=== PATIENT | female | born 1935 | race Caucasian/White ===

== ENCOUNTER → 2016-05-10 | Outpatient (CLI) | payer OTHER ==
[~2016-05-10] MED LIST: BUDE160A3 INH; LANTANOPROST OP; LEVO25TA6 PO; OMEP20TA44 PO; Premarin VG; ProAir HFA INH; SIMV-8 PO
[2016-05-10 10:27] LABS: Basophils # (auto) 0 uL; Basophils % (auto) 0.5 % (0.0-2.0); Eosinophils # (auto) 0.1 uL; Eosinophils % (auto) 2.4 % (0.0-7.0); Hematocrit 43.9 % (36.0-46.0); Hemoglobin 14.5 g/dL (12.2-16.2); Lymphocytes # (auto) 1.5 uL; Lymphocytes % (auto) 23.5 % (10.0-50.0); Mean Corpuscular Volume 96.9 fL (80.0-100.0); Mean Platelet Volume 10.4 fL (7.4-10.4); Monocytes # (auto) 0.3 uL; Monocytes % (auto) 5.5 % (0.0-12.0); Neutrophils # (auto) 4.2 uL; Neutrophils % (auto) 68.1 % (37.0-80.0); Platelet Count (auto) 236 10^3/uL (140-450); Red Cell Distribution Width 13.6 % (11.6-16.0); White Blood Cell 6.2 10^3/uL (4.4-10.8)
[2016-05-10 10:43] LABS: Albumin 3.7 g/dL (3.4-5.0); BUN/Creatinine Ratio 25.9; Bilirubin, Total 0.5 mg/dL (0.2-1.0); Calcium 8.9 mg/dL (8.5-10.1); Potassium 3.7 mmol/L (3.5-5.1); Total Protein 6.9 g/dL (6.4-8.2)
[2016-05-10 10:52] LABS: Urine Bilirubin Negative (Negative); Urine Blood Negative /uL (Negative); Urine Color Yellow (Yellow); Urine Glucose Normal (Normal); Urine Ketone Negative (Negative); Urine Nitrite Negative (Negative); Urine RBC 2 /hpf (0 - 4); Urine Squamous Epithelial Cell FEW /hpf (<5); Urine Urobilinogen Normal (Negative); Urine pH 6.5 (5.0-8.0)
== END | disposition home or self-care (01) ==
LOC: LAB 09:26
PROVIDERS: ATTEND Internal Medicine
DX: E10.9 Type 1 diabetes mellitus without complications (principal)
CPT/HCPCS: 36415; 80053; 80061; 81001; 82043; 82607; 83036; 84439; 84443; 85025; 85652

== ENCOUNTER → 2016-08-28 | Outpatient (CLI) | payer OTHER | END | disposition home or self-care (01) | LOC: LAB 11:00 | PROVIDERS: ATTEND Physician Assistant | DX: L82.1 Other seborrheic keratosis (principal) ==

== ENCOUNTER → 2016-09-11 | Outpatient (CLI) | payer OTHER | END | disposition home or self-care (01) | LOC: LAB 10:00 | PROVIDERS: ATTEND Physician Assistant | DX: C44.329 Squamous cell carcinoma of skin of other parts of face (principal) ==

== ENCOUNTER → 2016-11-20 | Outpatient (CLI) | payer OTHER ==
[2016-11-20 14:14] LABS: Basophils # (auto) 0 uL; Basophils % (auto) 0.4 % (0.0-2.0); CONDITION Y; Eosinophils # (auto) 0.2 uL; Eosinophils % (auto) 3.2 % (0.0-7.0); Hematocrit 42.9 % (36.0-46.0); Hemoglobin 14.4 g/dL (12.2-16.2); Lymphocytes # (auto) 1.7 uL; Lymphocytes % (auto) 25.7 % (10.0-50.0); Mean Corpuscular Hemoglobin 32.4 pg (28.0-32.0); Mean Corpuscular Hgb Conc. 33.5 g/dL (32.0-36.0); Mean Corpuscular Volume 96.6 fL (80.0-100.0); Mean Platelet Volume 10.3 fL (7.4-10.4); Monocytes # (auto) 0.4 uL; Monocytes % (auto) 6.6 % (0.0-12.0); Neutrophils # (auto) 4.3 uL; Neutrophils % (auto) 64.1 % (37.0-80.0); Platelet Count (auto) 283 10^3/uL (140-450); Red Cell Distribution Width 13.4 % (11.6-16.0); SUSPECT SEE PRINTOUT; White Blood Cell 6.7 10^3/uL (4.4-10.8)
[2016-11-20 14:55] LABS: Albumin 3.8 g/dL (3.4-5.0); BUN/Creatinine Ratio 32.1; Bilirubin, Total 0.4 mg/dL (0.2-1.0); Calcium 9.2 mg/dL (8.5-10.1); Potassium 3.8 mmol/L (3.5-5.1); Total Protein 7.4 g/dL (6.4-8.2)
== END | disposition home or self-care (01) ==
LOC: LAB 13:53
PROVIDERS: ATTEND Internal Medicine
DX: E10.39 Type 1 diabetes mellitus with other diabetic ophthalmic complication (principal); E03.9 Hypothyroidism, unspecified
CPT/HCPCS: 36415; 80053; 83036; 84439; 84443; 85025

== ENCOUNTER 2016-12-14 11:55 | Emergency (ER) | payer OTHER ==
[~2016-12-14] VITALS: Ht 162.6 cm; Wt 48.1 kg
[2016-12-14 13:27] LABS: Basophils # (auto) 0 uL; Basophils % (auto) 0.3 % (0.0-2.0); CONDITION Y; Eosinophils # (auto) 0.1 uL; Eosinophils % (auto) 0.9 % (0.0-7.0); Hematocrit 43.9 % (36.0-46.0); Hemoglobin 14.7 g/dL (12.2-16.2); Lymphocytes # (auto) 1.2 uL; Lymphocytes % (auto) 16.4 % (10.0-50.0); Mean Corpuscular Hemoglobin 32.5 pg (28.0-32.0); Mean Corpuscular Hgb Conc. 33.5 g/dL (32.0-36.0); Mean Corpuscular Volume 97.1 fL (80.0-100.0); Mean Platelet Volume 10.5 fL (7.4-10.4); Monocytes # (auto) 0.5 uL; Monocytes % (auto) 6.5 % (0.0-12.0); Neutrophils # (auto) 5.4 uL; Neutrophils % (auto) 75.9 % (37.0-80.0); Platelet Count (auto) 269 10^3/uL (140-450); Red Cell Distribution Width 13.5 % (11.6-16.0); SUSPECT SEE PRINTOUT; White Blood Cell 7.1 10^3/uL (4.4-10.8)
[2016-12-14 13:51] LABS: Albumin 3.7 g/dL (3.4-5.0); Alkaline Phosphatase 68 U/L (45-117); Amylase 48 U/L (25-115); Anion Gap 6 (5-15); Aspartate Aminotransferase 19 U/L (15-37); Bilirubin, Total 0.4 mg/dL (0.2-1.0); Blood Urea Nitrogen 12 mg/dL (7-18); Calcium 9.1 mg/dL (8.5-10.1); Carbon Dioxide 30 mmol/L (21-32); Chloride 104 mmol/L (98-107); GFR African American 123 mL/min; GFR Non-African American 102 mL/min; Glucose 95 mg/dL (74-106); Sodium 140 mmol/L (136-145); Total Protein 7.5 g/dL (6.4-8.2)
[2016-12-14] MEDS ORDERED: IOHEXOL 300 MG/ML 100ML BOTTLE IJ ONE (15:26)
[2016-12-14 15:53] LABS: Urine Bilirubin Negative (Negative); Urine Blood Negative /uL (Negative); Urine Color Yellow (Yellow); Urine Glucose Normal (Normal); Urine Mucus FEW (None Seen); Urine Nitrite Negative (Negative); Urine RBC 1 /hpf (0 - 4); Urine Squamous Epithelial Cell FEW /hpf (<5); Urine Urobilinogen Normal (Negative); Urine pH 5.5 (5.0-8.0)
[2016-12-14 15:59] LABS: Urine Ketone 1+ (Negative)
[2016-12-14 16:15] VITALS: BP 127/86
== END 2016-12-14 17:49 | disposition home or self-care (01) ==
LOC: ER 11:55
DX: K29.70 Gastritis, unspecified, without bleeding (principal); J44.9 Chronic obstructive pulmonary disease, unspecified; J45.909 Unspecified asthma, uncomplicated; E78.5 Hyperlipidemia, unspecified; E07.9 Disorder of thyroid, unspecified; Z90.710 Acquired absence of both cervix and uterus; Z88.1 Allergy status to other antibiotic agents; Z79.899 Other long term (current) drug therapy
CPT/HCPCS: 36415; 74177; 80053; 81001; 82150; 83690; 84484; 85025; 93005; 99285; Q9967

== ENCOUNTER → 2017-01-22 | Day surgery (SDC) | payer OTHER ==
[2017-01-18 10:42] LABS: Basophils # (auto) 0 uL; Basophils % (auto) 0.4 % (0.0-2.0); Eosinophils # (auto) 0.4 uL; Eosinophils % (auto) 5.5 % (0.0-7.0); Hematocrit 42.4 % (36.0-46.0); Hemoglobin 14.3 g/dL (12.2-16.2); Lymphocytes # (auto) 1.4 uL; Lymphocytes % (auto) 22.4 % (10.0-50.0); Mean Corpuscular Hemoglobin 32.8 pg (28.0-32.0); Mean Corpuscular Hgb Conc. 33.7 g/dL (32.0-36.0); Mean Corpuscular Volume 97.4 fL (80.0-100.0); Mean Platelet Volume 10.1 fL (6.9-10.8); Monocytes # (auto) 0.4 uL; Monocytes % (auto) 6.5 % (0.0-12.0); Neutrophils # (auto) 4.2 uL; Neutrophils % (auto) 65.2 % (37.0-80.0); Nucleated Red Blood Cells % 0.1 %; Platelet Count (auto) 216 10^3/uL (140-450); Red Cell Distribution Width 13.3 % (11.8-14.3); White Blood Cell 6.4 10^3/uL (4.4-10.8)
[2017-01-18 11:08] LABS: INR 0.98 (0.9-1.15); Partial Thromboplastin Time 28.5 sec (22.64-33.71); Prothrombin Time 10.7 sec (9.37-12.3)
[~2017-01-22] VITALS: Ht 162.6 cm; Wt 47.2 kg
[~2017-01-22] MED LIST changes: -BUDE160A3 INH; +FLUT110A INH; +LIDOCAINE VISCOUS 2% 15ML UD ONE; -OMEP20TA44 PO; +PANT40TA2 PO; +SODIUM CHLORIDE LOCK 10 ML ONE; +diphenhdrAMINE HCL 50 MG/1 ML VL ONE
[2017-01-22] MEDS: fentaNYL CITRATE 100 MCG/2 ML VL ONE ×2 (11:12→11:15)
[2017-01-22] MEDS: MIDAZOLAM HCL 5 MG/ML-1ML VIAL ONE ×2 (11:12→11:15)
[2017-01-22 13:35] VITALS: BP 113/62
== END | disposition home or self-care (01) ==
LOC: GI 09:11
PROVIDERS: ATTEND Internal Medicine Gastroenterology
DX: K29.50 Unspecified chronic gastritis without bleeding (principal); J45.998 Other asthma; Z90.710 Acquired absence of both cervix and uterus; E11.9 Type 2 diabetes mellitus without complications; F41.0 Panic disorder [episodic paroxysmal anxiety]; F41.9 Anxiety disorder, unspecified; K75.9 Inflammatory liver disease, unspecified
CPT/HCPCS: 36415; 43239; 82962; 85025; 85610; 85730; J1200; J2250; J3010

== ENCOUNTER → 2017-07-12 | Outpatient (CLI) | payer OTHER ==
[~2017-07-12] MED LIST changes: -LIDOCAINE VISCOUS 2% 15ML UD ONE; -SODIUM CHLORIDE LOCK 10 ML ONE; -diphenhdrAMINE HCL 50 MG/1 ML VL ONE
[2017-07-12 12:15] LABS: Basophils # (auto) 0.1 uL; Basophils % (auto) 1.4 % (0.0-2.0); Eosinophils # (auto) 0.1 uL; Eosinophils % (auto) 2.5 % (0.0-7.0); Hematocrit 44.5 % (36.0-46.0); Hemoglobin 14.8 g/dL (12.2-16.2); Lymphocytes # (auto) 1.5 uL; Lymphocytes % (auto) 28.5 % (10.0-50.0); Mean Corpuscular Hemoglobin 32.2 pg (28.0-32.0); Mean Corpuscular Hgb Conc. 33.3 g/dL (32.0-36.0); Mean Corpuscular Volume 96.7 fL (80.0-100.0); Monocytes # (auto) 0.4 uL; Monocytes % (auto) 7.1 % (0.0-12.0); Neutrophils # (auto) 3.2 uL; Neutrophils % (auto) 60.5 % (37.0-80.0); Nucleated Red Blood Cells % 0.3 %; Platelet Count (auto) 231 10^3/uL (140-450); Red Cell Distribution Width 13.6 % (11.8-14.3); White Blood Cell 5.3 10^3/uL (4.4-10.8)
[2017-07-12 12:19] LABS: Urine Bacteria NONE SEEN /hpf (None Seen); Urine Blood Negative /uL (Negative); Urine Mucus FEW (None Seen); Urine Specific Gravity 1.018 (1.001-1.035); Urine WBC 1 /hpf (0 - 5)
[2017-07-12 13:15] LABS: Free T4 (Free Thyroxine) 1.32 ng/dL (0.89-1.76)
[2017-07-12 13:57] LABS: Albumin 3.7 g/dL (3.4-5.0); BUN/Creatinine Ratio 25.8; Bilirubin, Total 0.6 mg/dL (0.2-1.0); Calcium 9.3 mg/dL (8.5-10.1); Potassium 3.9 mmol/L (3.5-5.1); Total Protein 7.3 g/dL (6.4-8.2)
== END | disposition home or self-care (01) ==
LOC: LAB 11:18
PROVIDERS: ATTEND Internal Medicine
DX: E11.9 Type 2 diabetes mellitus without complications (principal); K21.9 Gastro-esophageal reflux disease without esophagitis; J45.909 Unspecified asthma, uncomplicated
CPT/HCPCS: 36415; 80053; 80061; 81001; 82043; 82607; 83036; 84439; 84443; 85025

== ENCOUNTER → 2018-01-01 | Outpatient (CLI) | payer OTHER ==
[2018-01-01 14:01] LABS: Basophils # (auto) 0 uL; Basophils % (auto) 0.4 % (0.0-2.0); Eosinophils # (auto) 0.2 uL; Eosinophils % (auto) 2.9 % (0.0-7.0); Hematocrit 42.5 % (36.0-46.0); Hemoglobin 14.3 g/dL (12.2-16.2); Lymphocytes # (auto) 1.6 uL; Mean Corpuscular Hgb Conc. 33.6 g/dL (32.0-36.0); Mean Corpuscular Volume 98.2 fL (80.0-100.0); Monocytes # (auto) 0.4 uL; Monocytes % (auto) 6.5 % (0.0-12.0); Neutrophils # (auto) 4.1 uL; Neutrophils % (auto) 65.2 % (37.0-80.0); Nucleated Red Blood Cells % 0.1 %; Platelet Count (auto) 249 10^3/uL (140-450); Red Blood Cells 4.33 10^6/uL (4.0-5.20); Red Cell Distribution Width 13.5 % (11.8-14.3); White Blood Cell 6.4 10^3/uL (4.4-10.8)
[2018-01-01 14:16] LABS: Albumin 3.7 g/dL (3.4-5.0); BUN/Creatinine Ratio 28.4; Bilirubin, Total 0.5 mg/dL (0.2-1.0); Potassium 3.9 mmol/L (3.5-5.1); Total Protein 7.4 g/dL (6.4-8.2)
== END | disposition home or self-care (01) ==
LOC: LAB 13:33
PROVIDERS: ATTEND Internal Medicine
DX: E11.9 Type 2 diabetes mellitus without complications (principal); K57.90 Diverticulosis of intestine, part unspecified, without perforation or abscess without bleeding; J44.9 Chronic obstructive pulmonary disease, unspecified; Z90.49 Acquired absence of other specified parts of digestive tract
CPT/HCPCS: 36415; 80053; 83036; 85025

== ENCOUNTER 2018-01-26 08:45 | Emergency (ER) | payer OTHER ==
[~2018-01-26] VITALS: Ht 162.6 cm; Wt 68.0 kg
[2018-01-26 09:14] VITALS: BP 155/83
== END 2018-01-26 10:07 | disposition home or self-care (01) ==
LOC: ER 08:45
DX: L02.214 Cutaneous abscess of groin (principal); L73.9 Follicular disorder, unspecified; J44.9 Chronic obstructive pulmonary disease, unspecified; E07.89 Other specified disorders of thyroid; E78.5 Hyperlipidemia, unspecified; Z88.1 Allergy status to other antibiotic agents; Z90.710 Acquired absence of both cervix and uterus
CPT/HCPCS: 10060

== ENCOUNTER → 2018-06-11 | Outpatient (CLI) | payer OTHER, MEDICARE ==
[2018-06-11 15:19] LABS: Alanine Aminotransferase 25 U/L (13-56); Aspartate Aminotransferase 23 U/L (15-37)
== END | disposition home or self-care (01) ==
LOC: LAB 14:49
PROVIDERS: ATTEND Internal Medicine
DX: E03.9 Hypothyroidism, unspecified (principal); E78.5 Hyperlipidemia, unspecified
CPT/HCPCS: 36415; 84439; 84443; 84450; 84460

== ENCOUNTER → 2018-09-26 | Outpatient (CLI) | payer OTHER, MEDICARE ==
[2018-09-26 12:41] LABS: Basophils # (auto) 0 uL; Basophils % (auto) 0.3 % (0.0-2.0); Eosinophils # (auto) 0.2 uL; Eosinophils % (auto) 2.9 % (0.0-7.0); Hematocrit 43.1 % (36.0-46.0); Hemoglobin 14.5 g/dL (12.2-16.2); Lymphocytes # (auto) 1.7 uL; Mean Corpuscular Hemoglobin 32.7 pg (28.0-32.0); Mean Corpuscular Hgb Conc. 33.7 g/dL (32.0-36.0); Monocytes # (auto) 0.4 uL; Monocytes % (auto) 6.7 % (0.0-12.0); Neutrophils # (auto) 4.1 uL; Neutrophils % (auto) 64.1 % (37.0-80.0); Nucleated Red Blood Cells % 0.1 %; Platelet Count (auto) 256 10^3/uL (140-450); Red Blood Cells 4.45 10^6/uL (4.0-5.20); Red Cell Distribution Width 13.7 % (11.8-14.3); White Blood Cell 6.4 10^3/uL (4.4-10.8)
[2018-09-26 13:08] LABS: Albumin 3.6 g/dL (3.4-5.0); BUN/Creatinine Ratio 23.5; Potassium 3.8 mmol/L (3.5-5.1)
[2018-09-26 13:12] LABS: Bilirubin, Total 0.6 mg/dL (0.2-1.0)
[2018-09-27 12:06] LABS: Urine Bacteria NONE SEEN /hpf (None Seen); Urine Blood Negative /uL (Negative); Urine Specific Gravity 1.008 (1.001-1.035); Urine WBC 3 /hpf (0 - 5)
== END | disposition home or self-care (01) ==
LOC: LAB 12:02
PROVIDERS: ATTEND Internal Medicine
DX: E03.9 Hypothyroidism, unspecified (principal); K21.9 Gastro-esophageal reflux disease without esophagitis
CPT/HCPCS: 36415; 80053; 80061; 81001; 82043; 84439; 84443; 85025; 85652

== ENCOUNTER 2018-11-29 14:27 | Emergency (ER) | payer MEDICARE, OTHER ==
[~2018-11-29] VITALS: Ht 162.6 cm; Wt 54.4 kg
[2018-11-29 14:45] VITALS: BP 154/93
== END 2018-11-29 15:28 | disposition home or self-care (01) ==
LOC: ER 14:27
DX: H11.32 Conjunctival hemorrhage, left eye (principal); J44.9 Chronic obstructive pulmonary disease, unspecified; E78.5 Hyperlipidemia, unspecified; Z90.710 Acquired absence of both cervix and uterus; Z88.1 Allergy status to other antibiotic agents

== ENCOUNTER → 2019-04-07 | Outpatient (CLI) | payer OTHER ==
[2019-04-07 11:54] LABS: Potassium 3.6 mmol/L (3.5-5.1)
[2019-04-07 12:02] LABS: Albumin 3.7 g/dL (3.4-5.0); BUN/Creatinine Ratio 20.9; Bilirubin, Total 0.6 mg/dL (0.2-1.0); Calcium 8.5 mg/dL (8.5-10.1); Total Protein 7.2 g/dL (6.4-8.2)
== END | disposition home or self-care (01) ==
LOC: LAB 10:55
PROVIDERS: ATTEND Internal Medicine
DX: E11.9 Type 2 diabetes mellitus without complications (principal); E03.9 Hypothyroidism, unspecified
CPT/HCPCS: 36415; 80053; 83036; 84439; 84443

== ENCOUNTER 2019-05-08 23:01 | Emergency (ER) | payer OTHER ==
[~2019-05-08] VITALS: Ht 162.6 cm; Wt 46.7 kg
[2019-05-09 01:15] LABS: Urine Bacteria FEW /hpf (None Seen); Urine Blood Negative /uL (Negative); Urine Hyaline Cast FEW /lpf (0 - 2); Urine Mucus FEW (None Seen); Urine Specific Gravity 1.008 (1.001-1.035); Urine WBC 14 /hpf (0 - 5)
[2019-05-09] MEDS ORDERED: LIDOCAINE 1% HCL (LOCAL ANESTH.) INJ 20ML MDV IJ ONE (01:30)
[2019-05-09] MEDS ORDERED: cefTRIAXone SOD 1,000 MG VL IM ONE (01:30)
[2019-05-09] MEDS ORDERED: TETANUS-DIPTH-ACEL PERTUSSIS 0.5ML SYRG IM ONE (01:30)
[2019-05-09 03:35] VITALS: BP 120/60
== END 2019-05-09 02:37 | disposition home or self-care (01) ==
LOC: EDBD 23:01 → ER 23:07
DX: S01.01XA Laceration without foreign body of scalp, initial encounter (principal); J44.9 Chronic obstructive pulmonary disease, unspecified; E78.5 Hyperlipidemia, unspecified; Z90.710 Acquired absence of both cervix and uterus; Z88.1 Allergy status to other antibiotic agents; W19.XXXA Unspecified fall, initial encounter; Y93.89 Activity, other specified; Y99.8 Other external cause status; Y92.89 Other specified places as the place of occurrence of the external cause
CPT/HCPCS: 12002; 70450; 81001; 90471; 90715; 96372; 99284; J0696; J2001

== ENCOUNTER 2019-07-14 04:08 | Inpatient (IN) | payer OTHER ==
[~2019-07-14] VITALS: Ht 160 cm; Wt 119.0 kg
[2019-07-14 05:18] LABS: Urine Bacteria FEW /hpf (None Seen); Urine Blood Negative /uL (Negative); Urine Specific Gravity 1.006 (1.001-1.035); Urine WBC 5 /hpf (0 - 5)
[2019-07-14 06:28] LABS: Basophils # (auto) 0 10 ^3/uL (0-0.2); Basophils % (auto) 0.2 % (0.0-2.0); Eosinophils # (auto) 0.1 10 ^3/uL (0-0.8); Eosinophils % (auto) 0.9 % (0.0-7.0); Hematocrit 43.7 % (36.0-46.0); Hemoglobin 14.7 g/dL (12.2-16.2); Lymphocytes # (auto) 0.9 10 ^3/uL (0.4-5.4); Lymphocytes % (auto) 11.3 % (10.0-50.0); Mean Corpuscular Hemoglobin 32.4 pg (28.0-32.0); Mean Corpuscular Hgb Conc. 33.7 g/dL (32.0-36.0); Mean Corpuscular Volume 96.4 fL (80.0-100.0); Monocytes # (auto) 0.5 10 ^3/uL (0-1.3); Monocytes % (auto) 5.9 % (0.0-12.0); Neutrophils # (auto) 6.6 10 ^3/uL (1.6-8.6); Neutrophils % (auto) 81.7 % (37.0-80.0); Nucleated Red Blood Cells % 0.1 %; Platelet Count (auto) 254 10^3/uL (140-450); Red Blood Cells 4.53 10^6/uL (4.0-5.20); Red Cell Distribution Width 13.8 % (11.8-14.3); White Blood Cell 8.1 10^3/uL (4.4-10.8)
[2019-07-14 06:41] LABS: Albumin 3.6 g/dL (3.4-5.0); Anion Gap 4 (5-15); BUN/Creatinine Ratio 20.3; Blood Urea Nitrogen 15 mg/dL (7-18); Calcium 8.7 mg/dL (8.5-10.1); Carbon Dioxide 28 mmol/L (21-32); Chloride 111 mmol/L (98-107); GFR African American 96 mL/min; GFR Non-African American 79 mL/min; Glucose 147 mg/dL (74-106); Magnesium 2.2 mg/dL (1.6-2.6); Potassium 3.3 mmol/L (3.5-5.1); Sodium 143 mmol/L (136-145)
[2019-07-14 06:57] LABS: Alanine Aminotransferase 23 U/L (13-56); Alkaline Phosphatase 73 U/L (45-117); Aspartate Aminotransferase 14 U/L (15-37); Bilirubin, Total 0.3 mg/dL (0.2-1.0); Total Protein 7.1 g/dL (6.4-8.2)
[2019-07-14] MEDS ORDERED: IPRATROPIUM BROM 0.5 MG/2.5ML INH SOL NEB PRN (07:00)
[2019-07-14] MEDS ORDERED: ALBUTEROL SULF 2.5 MG/0.5ML(0.5%) NEB SOLN NEB PRN (07:00)
[2019-07-14] MEDS ORDERED: MORPHINE SULFATE 4 MG/ML SYR/VIAL IV PRN (07:00)
[2019-07-14] MEDS ORDERED: ONDANSETRON HCL 4 MG/2 ML VIAL IV PRN (07:00)
[2019-07-14] MEDS ORDERED: ACETAMINOPHEN 325 MG TAB PO PRN (07:00)
[2019-07-14] MEDS ORDERED: HYDROcodone-ACET 5/325MG TAB PO PRN (07:00)
[2019-07-14] MEDS ORDERED: DOCUSATE SOD 100 MG CAP PO PRN (07:00)
--- NOTE | 2019-07-14 07:00 | NUR ---
Respiratory note: ASSESSED PT FOR PRN BREATHING TX. PT IS AWAKE AND ALERT, NO S/S OF RESPIRATORY DISTRESS. PT IS CURRENTLY ON 2 L NASAL CANNULA. PT IS AWARE TO HAVE RT PAGED IF BREATHING TX IS NEEDED.
[2019-07-14] MEDS ORDERED: POTASSIUM CHL 20 Meq TABLET PO ONE (07:15)
[2019-07-14 07:19] LABS: INR 1.04 (0.9-1.15); Partial Thromboplastin Time 28.7 sec (23.64-32.05)
[2019-07-14] MEDS: SODIUM CHLORIDE 0.9% 1,000 ML IV SCH (07:34)
[2019-07-14] MEDS: LEVOTHYROXINE SODIUM 50 MCG TAB PO SCH (07:37)
[2019-07-14] MEDS: levoFLOXacin 500MG 100 ML IV SCH (07:37)
--- NOTE | 2019-07-14 11:07 | NUR ---
Telemetry admit from ER RAMY RODRIGUEZ admitted to Telemetry unit after SBAR received. Patient oriented to JAKE FUCHS, PARVIN primary RN, unit, room 221 B, and unit policies regarding patient care and visiting hours. Patient now on continuous telemetry monitoring, tele box # [id number]. Patient placed on bedside oxygen, weighed by bedscale and encouraged to call if they need something. All questions and concerns addressed, patient verbalized understanding.
[2019-07-14 11:45] VITALS: BP 153/76
[2019-07-14] MEDS: ATORVASTATIN 20 MG TAB PO SCH (12:31)
[2019-07-14] MEDS: PANTOPRAZOLE 40 MG TAB PO SCH ×2 (12:31→22:46)
[2019-07-14] MEDS ORDERED: METOPROLOL TARTRATE 1MG/1ML-5ML VIAL IV ONE (14:30)
[2019-07-14] MEDS ORDERED: CIPR-173 PO (15:06)
[2019-07-14 15:29] VITALS: BP 153/76
[2019-07-14 17:00] VITALS: BP 118/61
--- NOTE | 2019-07-14 19:25 | NUR ---
OPENING SHIFT NOTE Assumed care of patient who is A&O x3. Disoriented to place, but easily reoriented. Currently on 4L via Oxymizer. No s/s of distress and patient denies SOB or pain at this time. PIV in left upper arm is intact and patent. Flushed with 10ML NS. Patient is ambulatory with the use of a walker; walker is present at bedside. POC discussed with patient and patients son who is at the bedside. Patient is sitting on the side of bed, with feet on the floor. Call light within reach and patient instructed to call for assistance to get back into bed when ready. Patient verbalized understanding. Will continue to monitor for changes PRN. Addendum: 07/14/19 at 2043 by HUNTER SANCHEZ RN RN charted under wrong patient profile
--- NOTE | 2019-07-14 19:40 | NUR ---
OPENING SHIFT NOTE Assumed care of patient who is A&O x4. Currently on RA with no s/s of SOB or distress. Denies pain or heart palpitations. Patient currently has no IV access. States that she became tangled in the tubing, and IV became dislodged. IV is at the bedside and catheter is fully intact. No bleeding noted at previous insertion site. Patient is ambulatory without the use of assistive devices. POC discussed and patient verbalizes understanding. Bed is in low locked position with side rails up x2. Call light is within reach and patient encouraged to call for assistance when needed. Patient verbalizes understanding. Will continue to monitor for changes PRN.
--- NOTE | 2019-07-14 19:45 | NUR ---
Urine sample for culture sent to lab via [facility] system.
[2019-07-14 20:00] VITALS: BP 121/83
--- NOTE | 2019-07-14 20:00 | NUR ---
IV insertion IV access obtained, via clean sterile technique by inserting 22 gauge catheter at right forearm after 1 attempt. IV secured properly. No trauma to site. Patient tolerated well. note: IVF continued as ordered.
--- NOTE | 2019-07-14 21:00 | NUR ---
Respiratory note: PT ASSESSED FOR PRN MED NEB TX.. HR 89, RR 18, SPO2 97% ON 2L NC. NO SIGNS OF ANY RESPIRATORY DISTRESS NOTED. ADVISED PT TO CALL IF TX IS NEEDED. RT NAME AND PAGER NUMBER WRITTEN ON PT'S BOARD.
[2019-07-14] MEDS: METOPROLOL TARTRATE 25 MG TAB PO SCH (22:46)
[2019-07-14 23:36] VITALS: BP 121/83
--- NOTE | 2019-07-15 04:30 | NUR ---
Patient provided sanitary napkins per requests due to stress incontinence. Patient escorted into restroom with standby assist. Tolerated well.
[2019-07-15 05:52] VITALS: BP 120/71
[2019-07-15] MEDS: LEVOTHYROXINE SODIUM 50 MCG TAB PO SCH (06:42)
[2019-07-15 06:57] LABS: BUN/Creatinine Ratio 29.7; Calcium 8.7 mg/dL (8.5-10.1); Potassium 3.6 mmol/L (3.5-5.1)
--- NOTE | 2019-07-15 07:30 | NUR ---
Opening Shift Note Assumed care of patient, awake and alert, sitting up in bed. No S/S of distress/SOB, no pain noted or reported. Updated on POC and instructed to call for assistance as needed, patient verbalized understanding. Bed locked in lowest position, side rails up x2, call light within reach. Will continue to monitor for changes Q1hr and PRN.
[2019-07-15] MEDS: SODIUM CHLORIDE 0.9% 1,000 ML IV SCH (08:16)
[2019-07-15 08:20] VITALS: BP 121/83
[2019-07-15 09:00] VITALS: BP 124/72
[2019-07-15] MEDS: ATORVASTATIN 20 MG TAB PO SCH (10:34)
[2019-07-15] MEDS: levoFLOXacin 500MG 100 ML IV SCH ×2 (10:34→10:50)
[2019-07-15] MEDS: PANTOPRAZOLE 40 MG TAB PO SCH (10:35)
[2019-07-15] MEDS: METOPROLOL TARTRATE 25 MG TAB PO SCH (10:35)
--- NOTE | 2019-07-15 11:03 | NUR ---
Respiratory note: PT ASSESSED FOR PRN MED NEB TX, NO TX DESIRED NOR INDICATED AT THIS TIME. PT IS AWAKE/ALERT SITTING IN BED WITH NO0 NOTED DISTRESS. PT DENIES ANY SOB OR DIFF BREATHING. SPO2 95% ON RA HR 53 RR 14 BREATH SOUNDS ARE CLEAR. PT AND RN AWARE TO HAVE RT PAGED IF NEEDED.
[2019-07-15 13:37] VITALS: BP 113/74
[2019-07-15] MEDS ORDERED: MET25T PO (14:06)
[2019-07-15 16:26] VITALS: BP 115/70
[2019-07-15 16:51] VITALS: BP 115/70
--- NOTE | 2019-07-15 18:30 | NUR ---
Discharge home Discharge instructions given as ordered. Encourage to follow up with PMD as instructed. All questions and concerns addressed. Patient verbalized understanding. Medication reconciliation form completed and copy given to patient. IV removed with catheter intact, pressure dressing applied. Telemetry unit returned to ICU. Patient taken to vehicle via wheelchair with all personal belongings, accompanied by staff and family member. No distress noted at time of departure.
== END 2019-07-15 18:30 | disposition home or self-care (01) | DRG 315 ==
LOC: EDBD 04:08 → ER 04:08 → TELE 04:09 → TELE-CENTR 11:29
PROVIDERS: ADMIT Hospitalist; ATTEND Internal Medicine Nephrology
DX: R00.8 Other abnormalities of heart beat (principal); N39.0 Urinary tract infection, site not specified; J44.9 Chronic obstructive pulmonary disease, unspecified; J45.909 Unspecified asthma, uncomplicated; R00.2 Palpitations; K21.9 Gastro-esophageal reflux disease without esophagitis; F41.9 Anxiety disorder, unspecified; E87.6 Hypokalemia; E78.5 Hyperlipidemia, unspecified; E03.9 Hypothyroidism, unspecified; R73.9 Hyperglycemia, unspecified; I10 Essential (primary) hypertension; Z88.1 Allergy status to other antibiotic agents; Z79.899 Other long term (current) drug therapy; Z90.710 Acquired absence of both cervix and uterus; Z80.9 Family history of malignant neoplasm, unspecified; Z82.5 Family history of asthma and other chronic lower respiratory diseases
CPT/HCPCS: 36415; 36600; 71045; 80048; 80053; 81001; 82805; 83036; 83735; 83880; 84443; 84484; 85025; 85610; 85730; 87040; 87086; 93005; 93306; 96361; 96374; G0378; J1956

== ENCOUNTER 2019-10-11 19:07 | Inpatient (IN) | payer OTHER ==
[~2019-10-11] VITALS: Ht 162.6 cm; Wt 47.1 kg
[~2019-10-11 19:07] MED LIST changes: +MET25T PO; -Premarin VG; -ProAir HFA INH
[2019-10-11 19:43] LABS: Basophils # (auto) 0.1 10 ^3/uL (0-0.2); Basophils % (auto) 0.9 % (0.0-2.0); Eosinophils # (auto) 0.1 10 ^3/uL (0-0.8); Eosinophils % (auto) 1.7 % (0.0-7.0); Hematocrit 41.5 % (36.0-46.0); Hemoglobin 13.9 g/dL (12.2-16.2); Lymphocytes # (auto) 1.1 10 ^3/uL (0.4-5.4); Mean Corpuscular Hemoglobin 32.3 pg (28.0-32.0); Mean Corpuscular Hgb Conc. 33.6 g/dL (32.0-36.0); Mean Corpuscular Volume 96.4 fL (80.0-100.0); Monocytes # (auto) 0.4 10 ^3/uL (0-1.3); Monocytes % (auto) 5.9 % (0.0-12.0); Neutrophils # (auto) 5.3 10 ^3/uL (1.6-8.6); Neutrophils % (auto) 75.5 % (37.0-80.0); Nucleated Red Blood Cells % 0.1 %; Platelet Count (auto) 278 10^3/uL (140-450); White Blood Cell 7.1 10^3/uL (4.4-10.8)
[2019-10-11 20:03] LABS: Alanine Aminotransferase 30 U/L (13-56); Albumin 3.6 g/dL (3.4-5.0); Anion Gap 7 (5-15); Aspartate Aminotransferase 22 U/L (15-37); BUN/Creatinine Ratio 24.2; Blood Urea Nitrogen 15 mg/dL (7-18); Calcium 8.4 mg/dL (8.5-10.1); Carbon Dioxide 27 mmol/L (21-32); Chloride 107 mmol/L (98-107); GFR African American 118 mL/min; GFR Non-African American 97 mL/min; Glucose 95 mg/dL (74-106); Potassium 3.6 mmol/L (3.5-5.1); Sodium 141 mmol/L (136-145)
[2019-10-11 20:08] LABS: Alkaline Phosphatase 75 U/L (45-117); Bilirubin, Total 0.5 mg/dL (0.2-1.0); Total Protein 7.2 g/dL (6.4-8.2)
[2019-10-11] MEDS ORDERED: SODIUM CHLORIDE 0.9% 1,000 ML IVB ONE (20:24)
[2019-10-11] MEDS ORDERED: ASPirin 81 mg TAB PO ONE (20:30)
[2019-10-11 20:53] LABS: INR 1.03 (0.9-1.15); Partial Thromboplastin Time 29.1 sec (23.64-32.05)
[2019-10-11] MEDS ORDERED: IOHEXOL 350 MG/ML 100ML IJ ONE (22:11)
[2019-10-11] MEDS ORDERED: CLOPIDOGREL BISULFATE 75 MG TAB PO ONE (23:15)
[2019-10-12] MEDS ORDERED: MORPHINE SULF INJ 2 MG/ML SYRINGE 1ML IV PRN (03:00)
[2019-10-12] MEDS ORDERED: DOCUSATE SOD 100 MG CAP PO PRN (03:00)
[2019-10-12] MEDS ORDERED: ACETAMINOPHEN 325 MG TAB PO PRN (03:00)
[2019-10-12] MEDS ORDERED: HYDROcodone-ACET 5/325MG TAB PO PRN (03:00)
[2019-10-12] MEDS ORDERED: ONDANSETRON HCL 4 MG/2 ML VIAL IV PRN (03:00)
[2019-10-12 06:28] LABS: Basophils # (auto) 0 10 ^3/uL (0-0.2); Basophils % (auto) 0.5 % (0.0-2.0); Eosinophils # (auto) 0.2 10 ^3/uL (0-0.8); Eosinophils % (auto) 3.7 % (0.0-7.0); Hematocrit 40.6 % (36.0-46.0); Hemoglobin 13.6 g/dL (12.2-16.2); Lymphocytes # (auto) 1.4 10 ^3/uL (0.4-5.4); Lymphocytes % (auto) 22.3 % (10.0-50.0); Mean Corpuscular Hemoglobin 32.4 pg (28.0-32.0); Mean Corpuscular Hgb Conc. 33.5 g/dL (32.0-36.0); Mean Corpuscular Volume 96.6 fL (80.0-100.0); Monocytes # (auto) 0.5 10 ^3/uL (0-1.3); Monocytes % (auto) 7.5 % (0.0-12.0); Neutrophils # (auto) 4.1 10 ^3/uL (1.6-8.6); Platelet Count (auto) 267 10^3/uL (140-450); Red Blood Cells 4.21 10^6/uL (4.0-5.20); White Blood Cell 6.1 10^3/uL (4.4-10.8)
[2019-10-12 06:47] LABS: Calcium 8.3 mg/dL (8.5-10.1); Potassium 3.3 mmol/L (3.5-5.1)
[2019-10-12 06:52] LABS: BUN/Creatinine Ratio 16.4
[2019-10-12] MEDS: LEVOTHYROXINE SODIUM 25 MCG TAB PO SCH (07:40)
[2019-10-12] MEDS ORDERED: PANT40T PO (07:45)
[2019-10-12] MEDS ORDERED: LATA0.0019 EACHEYE (07:45)
[2019-10-12] MEDS ORDERED: METO25TA93 PO (07:45)
[2019-10-12] MEDS: PANTOPRAZOLE 40 MG TAB PO SCH ×2 (09:50→22:23)
[2019-10-12] MEDS: METOPROLOL TARTRATE 25 MG TAB PO SCH ×2 (09:51→22:23)
[2019-10-12 15:00] VITALS: BP 134/80
[2019-10-12 16:59] VITALS: BP 145/77
[2019-10-12 22:00] VITALS: BP 153/90
[2019-10-12] MEDS ORDERED: ATORVASTATIN 20 MG TAB PO SCH (22:00)
[2019-10-12] MEDS ORDERED: LATANOPROST 0.005 % OPTH(EYE) SOL 2.5ML EACHEYE SCH (22:00)
[2019-10-13 05:55] VITALS: BP 152/99
[2019-10-13] MEDS: LEVOTHYROXINE SODIUM 25 MCG TAB PO SCH (05:59)
[2019-10-13 09:00] VITALS: BP 126/77
[2019-10-13] MEDS ORDERED: POTASSIUM CHL 20 Meq TABLET PO ONE (10:15)
[2019-10-13] MEDS: PANTOPRAZOLE 40 MG TAB PO SCH (10:21)
[2019-10-13] MEDS: METOPROLOL TARTRATE 25 MG TAB PO SCH (10:22)
[2019-10-13 13:00] VITALS: BP 136/80
[2019-10-13 16:12] VITALS: BP 136/80
== END 2019-10-13 16:30 | disposition home or self-care (01) | DRG 309 ==
LOC: ER 19:07 → EDBD 19:07 → TELE 19:08 → TELE-CENTR 10-12 14:43
PROVIDERS: ADMIT Hospitalist; ATTEND Family Medicine
DX: R00.2 Palpitations (principal); Z68.1 Body mass index [BMI] 19.9 or less, adult; E03.9 Hypothyroidism, unspecified; E87.6 Hypokalemia; E78.5 Hyperlipidemia, unspecified; E78.00 Pure hypercholesterolemia, unspecified; I11.0 Hypertensive heart disease with heart failure; J44.9 Chronic obstructive pulmonary disease, unspecified; R63.6 Underweight; Z82.5 Family history of asthma and other chronic lower respiratory diseases; Z90.710 Acquired absence of both cervix and uterus; Z88.8 Allergy status to other drugs, medicaments and biological substances
CPT/HCPCS: 36415; 71045; 71275; 80048; 80053; 80061; 83735; 83880; 84443; 84484; 85025; 85379; 85610; 85730; 93005; G0378

== ENCOUNTER → 2019-11-19 | Outpatient (CLI) | payer OTHER ==
[~2019-11-19] MED LIST changes: -LANTANOPROST OP; +LATA0.0019 EACHEYE; -MET25T PO; +METO25TA93 PO; +PANT40T PO; -PANT40TA2 PO
[2019-11-19 15:38] LABS: Magnesium 2.6 mg/dL (1.6-2.6); Potassium 5.2 mmol/L (3.5-5.1)
== END | disposition home or self-care (01) ==
LOC: LAB 14:49
PROVIDERS: ATTEND Internal Medicine
DX: E87.6 Hypokalemia (principal)
CPT/HCPCS: 36415; 83735; 84132

== ENCOUNTER → 2019-12-01 | Outpatient (CLI) | payer OTHER | END | disposition home or self-care (01) | LOC: LAB 15:13 | PROVIDERS: ATTEND Internal Medicine | DX: E87.6 Hypokalemia (principal); E11.9 Type 2 diabetes mellitus without complications | CPT/HCPCS: 36415; 83036; 84132 ==

== ENCOUNTER → 2020-07-13 | Outpatient (CLI) | payer OTHER ==
[~2020-07-13] MED LIST changes: +APIX2.5T PO; +CHOL1TAB22 PO; +FLU220IH INH; +LATA0.0020 EACHEYE; +LEVO50TA7 PO; +METO25TA5 PO; +MULT-1058 PO; +PROB1CHW2 PO
[2020-07-13 16:06] LABS: Albumin 3.5 g/dL (3.4-5.0); Calcium 8.9 mg/dL (8.5-10.1); Potassium 4.1 mmol/L (3.5-5.1)
[2020-07-13 16:09] LABS: BUN/Creatinine Ratio 29.7; Bilirubin, Total 0.4 mg/dL (0.2-1.0); Total Protein 7.4 g/dL (6.4-8.2)
[2020-07-13 16:10] LABS: Basophils # (auto) 0 10 ^3/uL (0-0.2); Basophils % (auto) 0.3 % (0.0-2.0); Eosinophils # (auto) 0.2 10 ^3/uL (0-0.8); Eosinophils % (auto) 3.2 % (0.0-7.0); Hematocrit 39.9 % (36.0-46.0); Hemoglobin 13.4 g/dL (12.2-16.2); Lymphocytes # (auto) 1.5 10 ^3/uL (0.4-5.4); Lymphocytes % (auto) 20.4 % (10.0-50.0); Mean Corpuscular Hemoglobin 31.8 pg (28.0-32.0); Mean Corpuscular Hgb Conc. 33.6 g/dL (32.0-36.0); Mean Corpuscular Volume 94.7 fL (80.0-100.0); Monocytes # (auto) 0.5 10 ^3/uL (0-1.3); Neutrophils # (auto) 5.2 10 ^3/uL (1.6-8.6); Neutrophils % (auto) 69.1 % (37.0-80.0); Nucleated Red Blood Cells % 0.1 %; Platelet Count (auto) 289 10^3/uL (140-450); Red Blood Cells 4.21 10^6/uL (4.0-5.20); Red Cell Distribution Width 13.8 % (11.8-14.3); White Blood Cell 7.5 10^3/uL (4.4-10.8)
== END | disposition home or self-care (01) ==
LOC: LAB 14:58
PROVIDERS: ATTEND Internal Medicine
DX: E11.9 Type 2 diabetes mellitus without complications (principal); E03.9 Hypothyroidism, unspecified
CPT/HCPCS: 36415; 80053; 83036; 84443; 84550; 85025; 85652

== ENCOUNTER → 2020-09-29 | Outpatient (CLI) | payer OTHER ==
[2020-09-29 15:41] LABS: Basophils # (auto) 0 10 ^3/uL (0-0.2); Basophils % (auto) 0.4 % (0.0-2.0); Eosinophils # (auto) 0.8 10 ^3/uL (0-0.8); Eosinophils % (auto) 9.2 % (0.0-7.0); Hematocrit 40.1 % (36.0-46.0); Hemoglobin 13.8 g/dL (12.2-16.2); Lymphocytes # (auto) 1.4 10 ^3/uL (0.4-5.4); Lymphocytes % (auto) 15.4 % (10.0-50.0); Mean Corpuscular Hemoglobin 32.8 pg (28.0-32.0); Mean Corpuscular Hgb Conc. 34.4 g/dL (32.0-36.0); Mean Corpuscular Volume 95.3 fL (80.0-100.0); Monocytes # (auto) 0.7 10 ^3/uL (0-1.3); Monocytes % (auto) 7.8 % (0.0-12.0); Neutrophils % (auto) 67.2 % (37.0-80.0); Platelet Count (auto) 267 10^3/uL (140-450); Red Cell Distribution Width 14.1 % (11.8-14.3); White Blood Cell 8.9 10^3/uL (4.4-10.8)
[2020-09-29 16:42] LABS: Albumin 3.3 g/dL (3.4-5.0); Calcium 8.6 mg/dL (8.5-10.1); Potassium 3.8 mmol/L (3.5-5.1)
[2020-09-29 16:46] LABS: Bilirubin, Total 0.6 mg/dL (0.2-1.0)
== END | disposition home or self-care (01) ==
LOC: LAB 15:27
PROVIDERS: ATTEND Internal Medicine
DX: J20.9 Acute bronchitis, unspecified (principal)
CPT/HCPCS: 36415; 80053; 84439; 84443; 85025

== ENCOUNTER → 2020-12-14 | Outpatient (CLI) | payer OTHER | END | disposition home or self-care (01) | LOC: LAB 14:43 | PROVIDERS: ATTEND Internal Medicine | DX: R93.89 Abnormal findings on diagnostic imaging of other specified body structures (principal) | CPT/HCPCS: 36415; 82565; 84520 ==

== ENCOUNTER → 2021-02-18 | Outpatient (CLI) | payer OTHER | END | disposition home or self-care (01) | LOC: LAB 14:07 | PROVIDERS: ATTEND Nurse Practitioner Family | DX: Z20.822 Contact with and (suspected) exposure to COVID-19 (principal) | CPT/HCPCS: C9803; U0003 ==

== ENCOUNTER → 2021-08-03 | Outpatient (CLI) | payer OTHER ==
[2021-08-03 13:53] LABS: Basophils # (auto) 0.1 10 ^3/uL (0-0.2); Basophils % (auto) 0.8 % (0.0-2.0); Eosinophils # (auto) 0.3 10 ^3/uL (0-0.8); Hematocrit 39.3 % (36.0-46.0); Hemoglobin 13.2 g/dL (12.2-16.2); Lymphocytes # (auto) 1.4 10 ^3/uL (0.4-5.4); Mean Corpuscular Hgb Conc. 33.5 g/dL (32.0-36.0); Mean Corpuscular Volume 95.5 fL (80.0-100.0); Monocytes # (auto) 0.4 10 ^3/uL (0-1.3); Monocytes % (auto) 5.3 % (0.0-12.0); Neutrophils # (auto) 4.6 10 ^3/uL (1.6-8.6); Neutrophils % (auto) 68.9 % (37.0-80.0); Nucleated Red Blood Cells % 0.1 %; Red Blood Cells 4.11 10^6/uL (4.0-5.20); White Blood Cell 6.7 10^3/uL (4.4-10.8)
[2021-08-03 14:03] LABS: Urine Bacteria NONE SEEN /hpf (None Seen); Urine Blood Negative /uL (Negative); Urine Mucus FEW (None Seen); Urine Specific Gravity 1.011 (1.001-1.035); Urine WBC <1 /hpf (0 - 5)
[2021-08-03 14:38] LABS: Albumin 3.3 g/dL (3.4-5.0); Calcium 8.7 mg/dL (8.5-10.1); Potassium 3.8 mmol/L (3.5-5.1)
[2021-08-03 14:43] LABS: Bilirubin, Total 0.5 mg/dL (0.2-1.0); Total Protein 6.8 g/dL (6.4-8.2)
[2021-08-03 14:48] LABS: Free T4 (Free Thyroxine) 1.07 ng/dL (0.89-1.76)
[2021-08-03 15:23] LABS: BUN/Creatinine Ratio 18.3
== END | disposition home or self-care (01) ==
LOC: LAB 13:20
PROVIDERS: ATTEND Internal Medicine
DX: E11.40 Type 2 diabetes mellitus with diabetic neuropathy, unspecified (principal); J45.909 Unspecified asthma, uncomplicated
CPT/HCPCS: 36415; 80053; 80061; 81001; 82043; 82607; 83036; 84439; 84443; 85025; 85652

== ENCOUNTER → 2021-11-01 | Outpatient (CLI) | payer OTHER ==
[2021-11-01 13:58] LABS: Basophils # (auto) 0 10 ^3/uL (0-0.2); Basophils % (auto) 0.3 % (0.0-2.0); Eosinophils # (auto) 0 10 ^3/uL (0-0.8); Eosinophils % (auto) 0.1 % (0.0-7.0); Hematocrit 41.4 % (36.0-46.0); Hemoglobin 13.5 g/dL (12.2-16.2); Lymphocytes # (auto) 1.1 10 ^3/uL (0.4-5.4); Lymphocytes % (auto) 7.6 % (10.0-50.0); Mean Corpuscular Hemoglobin 31.2 pg (28.0-32.0); Mean Corpuscular Hgb Conc. 32.6 g/dL (32.0-36.0); Mean Corpuscular Volume 95.7 fL (80.0-100.0); Monocytes # (auto) 1.2 10 ^3/uL (0-1.3); Monocytes % (auto) 7.9 % (0.0-12.0); Neutrophils # (auto) 12.2 10 ^3/uL (1.6-8.6); Neutrophils % (auto) 84.1 % (37.0-80.0); Red Blood Cells 4.33 10^6/uL (4.0-5.20); Red Cell Distribution Width 14.1 % (11.8-14.3); White Blood Cell 14.6 10^3/uL (4.4-10.8)
[2021-11-01 14:28] LABS: Albumin 3.2 g/dL (3.4-5.0); BUN/Creatinine Ratio 15.7; Calcium 8.8 mg/dL (8.5-10.1); Potassium 4.2 mmol/L (3.5-5.1)
[2021-11-01 14:32] LABS: Bilirubin, Total 1.1 mg/dL (0.2-1.0)
== END | disposition home or self-care (01) ==
LOC: LAB 13:05
PROVIDERS: ATTEND Internal Medicine
DX: J40 Bronchitis, not specified as acute or chronic (principal)
CPT/HCPCS: 36415; 80053; 83036; 85025; 87070; 87205

== ENCOUNTER → 2022-06-08 | Outpatient (CLI) | payer OTHER ==
[2022-06-08 12:26] LABS: Basophils # (auto) 0 10 ^3/uL (0-0.2); Basophils % (auto) 0.6 % (0.0-2.0); Eosinophils # (auto) 0.5 10 ^3/uL (0-0.8); Eosinophils % (auto) 6.2 % (0.0-7.0); Hematocrit 42.6 % (36.0-46.0); Lymphocytes # (auto) 1.3 10 ^3/uL (0.4-5.4); Lymphocytes % (auto) 16.9 % (10.0-50.0); Mean Corpuscular Volume 97.1 fL (80.0-100.0); Monocytes # (auto) 0.5 10 ^3/uL (0-1.3); Monocytes % (auto) 6.4 % (0.0-12.0); Neutrophils # (auto) 5.3 10 ^3/uL (1.6-8.6); Neutrophils % (auto) 69.9 % (37.0-80.0); Red Blood Cells 4.39 10^6/uL (4.0-5.20); Red Cell Distribution Width 14.1 % (11.8-14.3); White Blood Cell 7.6 10^3/uL (4.4-10.8)
[2022-06-08 13:25] LABS: Potassium 3.8 mmol/L (3.5-5.1)
[2022-06-08 13:32] LABS: Albumin 3.6 g/dL (3.4-5.0); BUN/Creatinine Ratio 27.8; Bilirubin, Total 0.6 mg/dL (0.2-1.0); Calcium 8.6 mg/dL (8.5-10.1); Total Protein 6.8 g/dL (6.4-8.2)
== END | disposition home or self-care (01) ==
LOC: LAB 12:09
PROVIDERS: ATTEND Internal Medicine
DX: I10 Essential (primary) hypertension (principal); E11.9 Type 2 diabetes mellitus without complications
CPT/HCPCS: 36415; 80053; 83036; 84439; 84443; 85025

== ENCOUNTER 2022-06-21 11:09 | Emergency (ER) | payer OTHER ==
[~2022-06-21] VITALS: Ht 162.6 cm; Wt 46.9 kg
[2022-06-21 13:13] VITALS: BP 155/74
[2022-06-21] MEDS ORDERED: CEPH-510 PO (13:56)
== END 2022-06-21 14:13 | disposition home or self-care (01) ==
LOC: ER 11:09
DX: S01.532A Puncture wound without foreign body of oral cavity, initial encounter (principal); F41.9 Anxiety disorder, unspecified; E78.5 Hyperlipidemia, unspecified; I10 Essential (primary) hypertension; Z79.899 Other long term (current) drug therapy; Z90.710 Acquired absence of both cervix and uterus; X58.XXXA Exposure to other specified factors, initial encounter; Y93.89 Activity, other specified; Y92.89 Other specified places as the place of occurrence of the external cause; Y99.8 Other external cause status

== ENCOUNTER → 2023-03-20 | Outpatient (CLI) | payer OTHER ==
[~2023-03-20] MED LIST changes: +CEPH-510 PO; -LATA0.0019 EACHEYE; +LATA0.008 EACHEYE; -SIMV-8 PO; +SIMV20TA20 PO
[2023-03-20 12:21] LABS: Basophils # (auto) 0 10 ^3/uL (0-0.2); Basophils % (auto) 0.3 % (0.0-2.0); Eosinophils # (auto) 0.4 10 ^3/uL (0-0.8); Eosinophils % (auto) 5.1 % (0.0-7.0); Hematocrit 40.5 % (36.0-46.0); Hemoglobin 13.6 g/dL (12.2-16.2); Lymphocytes # (auto) 1.2 10 ^3/uL (0.4-5.4); Lymphocytes % (auto) 16.2 % (10.0-50.0); Mean Corpuscular Hemoglobin 32.7 pg (28.0-32.0); Mean Corpuscular Hgb Conc. 33.5 g/dL (32.0-36.0); Mean Corpuscular Volume 97.5 fL (80.0-100.0); Monocytes # (auto) 0.5 10 ^3/uL (0-1.3); Monocytes % (auto) 6.5 % (0.0-12.0); Neutrophils # (auto) 5.3 10 ^3/uL (1.6-8.6); Neutrophils % (auto) 71.9 % (37.0-80.0); Red Blood Cells 4.16 10^6/uL (4.0-5.20); Red Cell Distribution Width 13.8 % (11.8-14.3); White Blood Cell 7.4 10^3/uL (4.4-10.8)
[2023-03-20 12:46] LABS: Alanine Aminotransferase 23 U/L (7-40); Albumin 4.2 g/dL (3.2-4.8); Alkaline Phosphatase 67 U/L (46-116); Anion Gap 3 (5-15); Aspartate Aminotransferase 30 U/L (13-40); BUN/Creatinine Ratio 23.2 (10.0-20.0); Bilirubin, Total 0.5 mg/dL (0.2-1.0); Blood Urea Nitrogen 19 mg/dL (9-23); Calcium 9.3 mg/dL (8.7-10.4); Carbon Dioxide 31 mmol/L (20-30); Chloride 108 mmol/L (98-107); Magnesium 2.3 mg/dL (1.6-2.6); Potassium 3.8 mmol/L (3.5-5.1); Sodium 142 mmol/L (136-145); Total Protein 6.8 g/dL (5.7-8.2)
[2023-03-20 12:49] LABS: Glucose 74 mg/dL (74-106)
== END | disposition home or self-care (01) ==
LOC: LAB 11:39
PROVIDERS: ATTEND Internal Medicine
DX: I10 Essential (primary) hypertension (principal); E11.9 Type 2 diabetes mellitus without complications
CPT/HCPCS: 36415; 80053; 83036; 83735; 85025

== ENCOUNTER → 2023-04-02 | Outpatient (CLI) | payer OTHER | END | disposition home or self-care (01) | LOC: XYW 10:18 | PROVIDERS: ATTEND Internal Medicine | DX: I08.0 Rheumatic disorders of both mitral and aortic valves (principal); I49.3 Ventricular premature depolarization | CPT/HCPCS: 93306 ==

== ENCOUNTER → 2023-11-23 | Outpatient (CLI) | payer OTHER ==
[2023-11-23 13:03] LABS: Urine Bacteria None Seen /hpf (None Seen)
[2023-11-23 13:14] LABS: Basophils # (auto) 0 10 ^3/uL (0-0.2); Basophils % (auto) 0.4 % (0.0-2.0); Eosinophils # (auto) 0.2 10 ^3/uL (0-0.8); Eosinophils % (auto) 2.8 % (0.0-7.0); Hematocrit 40.8 % (36.0-46.0); Hemoglobin 13.7 g/dL (12.2-16.2); Lymphocytes # (auto) 1.3 10 ^3/uL (0.4-5.4); Lymphocytes % (auto) 22.4 % (10.0-50.0); Mean Corpuscular Hemoglobin 32.6 pg (28.0-32.0); Mean Corpuscular Hgb Conc. 33.5 g/dL (32.0-36.0); Mean Corpuscular Volume 97.3 fL (80.0-100.0); Monocytes # (auto) 0.4 10 ^3/uL (0-1.3); Monocytes % (auto) 6.4 % (0.0-12.0); Red Blood Cells 4.19 10^6/uL (4.0-5.20); Red Cell Distribution Width 14.2 % (11.8-14.3); White Blood Cell 5.9 10^3/uL (4.4-10.8)
[2023-11-23 13:56] LABS: Urine Blood Negative /uL (Negative); Urine Clarity Clear (Clear); Urine Color Yellow (Yellow); Urine Hyaline Cast FEW /lpf (0 - 2); Urine Mucus FEW (None Seen); Urine Protein, UAD TRACE (Negative); Urine Specific Gravity 1.024 (1.001-1.035); Urine Urobilinogen Normal (Negative); Urine WBC 2 /hpf (0 - 5); Urine pH 5.5 (5.0-9.0)
[2023-11-23 14:08] LABS: Alanine Aminotransferase 19 U/L (7-40); Albumin 4.3 g/dL (3.2-4.8); Alkaline Phosphatase 74 U/L (46-116); Anion Gap 5 (5-15); Aspartate Aminotransferase 23 U/L (13-40); BUN/Creatinine Ratio 22.5 (10.0-20.0); Blood Urea Nitrogen 20 mg/dL (9-23); Calcium 9.5 mg/dL (8.7-10.4); Carbon Dioxide 31 mmol/L (20-30); Chloride 107 mmol/L (98-107); Glucose 91 mg/dL (74-106); LDL Cholesterol 43 mg/dL (< 100); Potassium 4.3 mmol/L (3.5-5.1); Sodium 143 mmol/L (136-145); Triglycerides 47 mg/dL (< 150)
[2023-11-23 14:09] LABS: Bilirubin, Total 0.7 mg/dL (0.2-1.0); Cholesterol 118 mg/dL (< 200); HDL Cholesterol 63 mg/dL (40-59); Total Protein 6.6 g/dL (5.7-8.2)
[2023-11-23 14:16] LABS: Erythrocyte Sedimentation Rate 12 mm/hr (0-20)
== END | disposition home or self-care (01) ==
LOC: LAB 12:50
PROVIDERS: ATTEND Internal Medicine
DX: I10 Essential (primary) hypertension (principal); E11.9 Type 2 diabetes mellitus without complications
CPT/HCPCS: 36415; 80053; 80061; 81001; 82043; 83036; 84439; 84443; 85025; 85652

== ENCOUNTER 2023-12-07 11:57 | Emergency (ER) | payer OTHER ==
[~2023-12-07] VITALS: Ht 149.9 cm; Wt 43.4 kg
[2023-12-07 12:52] VITALS: BP 158/94; PULSE 85; RESP 18; O2SAT 95
[2023-12-07] MEDS ORDERED: CEPH500C PO (13:00)
[2023-12-07] MEDS ORDERED: ACET-1080 PO (13:00)
[2023-12-07 13:07] VITALS: TEMP 99
[2023-12-07] MEDS: ACETAMINOPHEN 325 MG TAB PO ONE (13:07)
[2023-12-07] MEDS: cefTRIAXone SOD 1,000 MG VL IM ONE (13:07)
== END 2023-12-07 13:30 | disposition home or self-care (01) ==
LOC: ER 12:00
DX: K04.7 Periapical abscess without sinus (principal); F41.9 Anxiety disorder, unspecified; E78.5 Hyperlipidemia, unspecified; I10 Essential (primary) hypertension; E03.9 Hypothyroidism, unspecified; Z90.710 Acquired absence of both cervix and uterus; Z88.1 Allergy status to other antibiotic agents; Z79.899 Other long term (current) drug therapy
CPT/HCPCS: 96372; 99283; J0696

== ENCOUNTER 2024-02-04 13:10 | Emergency (ER) | payer OTHER ==
[~2024-02-04] VITALS: Ht 162.6 cm; Wt 45.8 kg
[~2024-02-04 13:10] MED LIST changes: +ACET-1080 PO; +CEPH500C PO
[2024-02-04] MEDS ORDERED: CLIN1CAP70 PO (15:58)
[2024-02-04 16:51] VITALS: BP 145/92; PULSE 100; RESP 18; TEMP 97.6; O2SAT 95
== END 2024-02-04 16:51 | disposition home or self-care (01) ==
LOC: ER 13:10
DX: K02.9 Dental caries, unspecified (principal); K04.7 Periapical abscess without sinus; I10 Essential (primary) hypertension; E78.5 Hyperlipidemia, unspecified; F41.9 Anxiety disorder, unspecified; Z79.899 Other long term (current) drug therapy; Z90.710 Acquired absence of both cervix and uterus; Z98.890 Other specified postprocedural states; Z88.1 Allergy status to other antibiotic agents

== ENCOUNTER 2024-02-17 12:47 | Emergency (ER) | payer OTHER ==
[~2024-02-17] VITALS: Ht 162.6 cm; Wt 42.9 kg
[~2024-02-17 12:47] MED LIST changes: +CLIN1CAP70 PO
[2024-02-17] MEDS ORDERED: DOXY-286 PO (14:23)
[2024-02-17 14:39] VITALS: BP 133/95; PULSE 93; RESP 16; TEMP 98.7; O2SAT 96
== END 2024-02-17 14:44 | disposition home or self-care (01) ==
LOC: ER 12:47
DX: K04.7 Periapical abscess without sinus (principal); E78.5 Hyperlipidemia, unspecified; I10 Essential (primary) hypertension; E03.9 Hypothyroidism, unspecified; Z88.1 Allergy status to other antibiotic agents; Z88.8 Allergy status to other drugs, medicaments and biological substances; Z79.899 Other long term (current) drug therapy; Z90.710 Acquired absence of both cervix and uterus

== ENCOUNTER 2024-03-07 10:14 | Emergency (ER) | payer OTHER ==
[~2024-03-07] VITALS: Ht 162.6 cm; Wt 41.2 kg
[~2024-03-07 10:14] MED LIST changes: +DOXY-286 PO
[2024-03-07 11:26] VITALS: TEMP 98.2
[2024-03-07] MEDS ORDERED: LEVO500T91 PO (11:45)
[2024-03-07] MEDS ORDERED: BENZ200C64 PO (11:45)
[2024-03-07 11:50] VITALS: BP 134/47; PULSE 69; RESP 16; O2SAT 97
== END 2024-03-07 11:53 | disposition home or self-care (01) ==
LOC: ER 10:14
DX: J20.9 Acute bronchitis, unspecified (principal); K04.7 Periapical abscess without sinus; I10 Essential (primary) hypertension; E78.5 Hyperlipidemia, unspecified; F41.9 Anxiety disorder, unspecified; Z90.710 Acquired absence of both cervix and uterus
CPT/HCPCS: 71046

== ENCOUNTER 2024-06-29 10:42 | Inpatient (IN) | payer OTHER ==
[~2024-06-29] VITALS: Ht 162.6 cm; Wt 61.7 kg
[~2024-06-29 10:42] MED LIST changes: +BENZ200C64 PO; +LEVO500T91 PO
[2024-06-29 14:18] LABS: Basophils # (auto) 0 10 ^3/uL (0-0.2); Basophils % (auto) 0.3 % (0.0-2.0); Eosinophils # (auto) 0.1 10 ^3/uL (0-0.8); Eosinophils % (auto) 1.4 % (0.0-7.0); Hematocrit 40.6 % (36.0-46.0); Hemoglobin 13.7 g/dL (12.2-16.2); Lymphocytes # (auto) 1.1 10 ^3/uL (0.4-5.4); Lymphocytes % (auto) 12.3 % (10.0-50.0); Mean Corpuscular Hemoglobin 32.8 pg (28.0-32.0); Mean Corpuscular Hgb Conc. 33.8 g/dL (32.0-36.0); Mean Corpuscular Volume 97.1 fL (80.0-100.0); Monocytes # (auto) 0.6 10 ^3/uL (0-1.3); Monocytes % (auto) 6.9 % (0.0-12.0); Neutrophils # (auto) 6.9 10 ^3/uL (1.6-8.6); Neutrophils % (auto) 79.1 % (37.0-80.0); Nucleated Red Blood Cells % 0.1 %; Platelet Count (auto) 285 10^3/uL (140-450); Red Blood Cells 4.19 10^6/uL (4.0-5.20); Red Cell Distribution Width 14.1 % (11.8-14.3); White Blood Cell 8.7 10^3/uL (4.4-10.8)
[2024-06-29 14:24] LABS: Chloride 103 mmol/L (98-107); Potassium 4.1 mmol/L (3.5-5.1); Sodium 140 mmol/L (136-145)
[2024-06-29 14:25] LABS: Anion Gap 9 (5-15); Carbon Dioxide 28 mmol/L (20-31)
[2024-06-29 14:26] LABS: Calcium 9.3 mg/dL (8.7-10.4)
[2024-06-29 14:30] LABS: Glucose 106 mg/dL (74-106)
[2024-06-29 14:31] LABS: BUN/Creatinine Ratio 23.5 (10.0-20.0); Blood Urea Nitrogen 19 mg/dL (9-23)
--- NOTE | 2024-06-29 16:20 | DVH ---
Procedure: CT CT AB PEL WITH IV CON ONLY 06/29/2024 03:21 PM Indication: rectal pain. possible abscess formation Comparison Study: None Technique: Axial images were obtained and reformatted in coronal and sagittal planes. All CT scans at this medical facility are performed using dose modulation techniques as appropriate t o a performed exam including the following: Automated exposure control was utilized; adjustment of th e MA and/or KV according to patient size; and use of iterative reconstruction technique. CT Dose: CTDI volume is 5.4 mGy. Dose-length product is 285 mGy*cm FINDINGS: Lower Chest: Unremarkable. Hepatobiliary: Hepatomegaly. A 2 cm benign-appearing septated cyst is seen in the right hepatic lobe. No calcified gallstone. No intrahepatic or extrahepatic ductal dilatation. Spleen: Unremarkable. Pancreas: Unremarkable. Adrenal Glands: Unremarkable. tract: The kidneys are normal in size bilaterally without hydronephrosis or nephrolithiasis. The urinary bladder is unremarkable. GI tract: The stomach is grossly normal in appearance. No evidence of small bowel obstruction. The la rge bowel is unremarkable. The appendix is not visualized. No inflammatory change is noted in the ri ght lower quadrant. Lymphatics: No mesenteric, retroperitoneal or periportal lymphadenopathy. Vasculature: The abdominal aorta is normal in caliber. Diffuse calcified plaque formation is noted. Pelvic Organs: Unremarkable Bones/soft tissues: A 2.5 x 1.7 x 2.3 cm subcutaneous abscess is seen in the medial right buttock adj acent to the intergluteal cleft with surrounding subcutaneous edema. Postoperative changes of the lef t proximal femur. Multilevel degenerative changes of the lumbar spine are noted. Other: None. IMPRESSION: 1. A 2.5 x 2.3 cm medial right gluteal subcutaneous abscess with surrounding cellulitis. No definite erosion of the adjacent coccyx.
[2024-06-29] MEDS: IOHEXOL 300 MG/ML 100ML BOTTLE IJ ONE (16:25)
--- NOTE | 2024-06-29 16:36 | ED.PDOC ---
History of Present Illness(N Chief Complaint: Rectal Pain Time Seen by MD: 11:58 Primary Care Provider: FLAQUITO Allergies: Coded Allergies: Amoxicillin (Verified Allergy, Severe, 01/18/17) Azithromycin (Verified Allergy, Unknown, 01/18/17) Home Meds Active Scripts Benzonatate (Benzonatate) 200 Mg Cap, 1 CAP PO TID, #30 CAP Prov:SHYAM BONDS 03/07/24 Levofloxacin Hemihydrate (LEVAQUIN 500 MG) 500 Mg Tab, 1 TAB PO DAILY, #10 TAB Prov:SHYAM BONDS 03/07/24 Doxycycline Hyclate (DOXYCYCLINE HYCLATE) 100 Mg Tab, 1 TAB PO BID for 7 Days, #14 TAB 0 Refills Prov:ANURADHA LOPEZ TOP STITCHER 02/17/24 Clindamycin Hcl (Clindamycin Hcl) 300 Mg Cap, 1 CAP PO TID for 7 Days, #21 CAP Prov:SYLVESTER [facility]ERICK [facility] RN 02/04/24 Acetaminophen (Tylenol 8 Hour Arthritis) 650 Mg Tab, 650 MG PO TID, #30 TAB Prov:SHYAM BONDS 12/07/23 Cephalexin Monohydrate (Cephalexin) 500 Mg Cap, 1 CAP PO TID, #30 CAP Prov:SHYAM BONDS 12/07/23 Cephalexin ( Keflex 500) 500 Mg Cap, 1 CAP PO TID for 7 Days, #21 CAP Prov:SHYAM BONDS 06/21/22 Reported Medications Escitalopram Oxalate (ESCITALOPRAM OXALATE) 10 Mg Tab, 5 MG PO, TAB 06/30/24 Probiotic Product (Acidophilus) 1 Chw Chw, 1 CHW PO DAILY, TAB.CHEW 01/28/20 Cholecalciferol (D3-1000) 1,000 Unit Tab, 1000 UNIT PO DAILY, TAB 01/28/20 Multiple Vitamins W/ Minerals (Multivitamin) 1 Tab Tab, 1 TAB PO DAILY, TAB 01/28/20 Apixaban Base (ELIQUIS) 2.5 Mg Tab, 2.5 MG PO BID, TAB 01/28/20 Latanoprost (Xalatan) 0.005 % Yadira, 1 DROP EACHEYE QPM, #2.5 ML 6 Refills 01/28/20 Metoprolol Tartrate (Metoprolol Tartrate) 25 Mg Tab, 25 MG PO BID for 30 Days, MG 01/28/20 Simvastatin (Simvastatin) 20 Mg Tab, 20 MG PO HS for 30 Days 01/21/20 Fluticasone Propionate (Flovent Hfa) 220 Mcg Aer, 2 PUFF INH Q12HR, MCG 01/21/20 Levothyroxine Sodium (Levothyroxine Sodium) 50 Mcg Tab, 50 MCG PO QAM for 30 Days, MCG 01/21/20 Pantoprazole Sodium Sesquihydr (Pantoprazole Sodium) 40 Mg Tab, 40 MG PO DAILY 10/12/19 Latanoprost (LATANOPROST) 0.005 % Yadira, 1 DROP EACHEYE HS 10/12/19 Metoprolol Succinate (Metoprolol Succinate Er) 25 Mg Tab, 25 MG PO DAILY 10/12/19 Fluticasone Propionate (FLOVENT HFA 110Mcg INH) 110 Mcg Ih, 110 MCG INH Q12HR for 30 Days, MCG 01/18/17 Simvastatin (Simvastatin) 20 Mg Tab, 20 MG PO HS 12/16/11 Levothyroxine Sodium (Levothyroxine Sodium) 25 Mcg Tab, 50 MCG PO QAM 12/16/11 Mode of Arrival: Ambulatory Past Medical History PAST MEDICAL HISTORY: Anxiety, High Lipids, HTN, Thyroid Surgical History: Hysterectomy 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 RETAIL GREETING CARD MERCHANDISER History Family History Family History: Reviewed,noncontributory to illness Social History Smoker: Non-Smoker Alcohol: Denies ETOH Use Drugs: Denies Drug Use Lives In: Home Physical Exam General Appearance: No Apparent Distress, Normal HEENT: Normal ENT Inspection, Pharynx Normal, TMs Normal Neck: Full Range of Motion, Non-Tender, Normal, Normal Inspection Respiratory: Chest Non-Tender, Lungs Clear, No Accessory Muscle Use, No Respiratory Distress, Normal Breath Sounds Cardiovascular: No Edema, No JVD, No Murmur, No Gallop, Normal Peripheral Pulses, Regular Rate/Rhythm Breast Exam: Deferred Gastrointestinal: No Organomegaly, Non Tender, No Pulsatile Mass, Normal Bowel Sounds, Soft Genitalia: Deferred Pelvic: Deferred Rectal: Deferred Extremities: No calf tenderness, Normal capillary refill, Normal inspection, Normal range of motion, Non-tender, No pedal edema Musculoskeletal : Apperance: Normal Neurologic: Alert, senior revenue accountant II-XII nml as Tested, No Motor Deficits, Normal Affect, Normal Mood, No Sensory Deficits Cerebellar Function: Normal Reflexes: Normal Skin: Dry, Normal Color, Warm Lymphatic: No Adenopathy Was a procedure done? Was a procedure done?: No Images 1 - 2 x 2 cm medial right gluteal subcutaneous erythema suspicious for cellulitis and abscess. X-Ray, Labs, Meds, VS Vital Signs Date Time Temp Pulse Resp B/P (MAP) Pulse Ox O2 Delivery O2 Flow Rate FiO2 06/29/24 13:28 97.9 100 16 158/90 (112) 94 97.9 06/29/24 13:28 100 16 94 Room Air 06/29/24 11:37 98.9 104 16 164/95 (118) 94 Lab Test 06/29/24 13:41 Range/Units White Blood Count 8.7 4.4-10.8 10^3/uL Red Blood Count 4.19 4.0-5.20 10^6/uL Hemoglobin 13.7 12.2-16.2 g/dL Hematocrit 40.6 36.0-46.0 % Mean Corpuscular Volume 97.1 80.0-100.0 fL Mean Corpuscular Hemoglobin 32.8 H 28.0-32.0 pg Mean Corpuscular Hemoglobin Concent 33.8 32.0-36.0 g/dL Red Cell Distribution Width 14.1 11.8-14.3 % Platelet Count 285 140-450 10^3/uL Mean Platelet Volume 10.8 6.9-10.8 fL Neutrophils (%) (Auto) 79.1 37.0-80.0 % Lymphocytes (%) (Auto) 12.3 10.0-50.0 % Monocytes (%) (Auto) 6.9 0.0-12.0 % Eosinophils (%) (Auto) 1.4 0.0-7.0 % Basophils (%) (Auto) 0.3 0.0-2.0 % Neutrophils # (Auto) 6.9 1.6-8.6 10 ^3/uL Lymphocytes # (Auto) 1.1 0.4-5.4 10 ^3/uL Monocytes # (Auto) 0.6 0-1.3 10 ^3/uL Eosinophils # (Auto) 0.1 0-0.8 10 ^3/uL Basophils # (Auto) 0 0-0.2 10 ^3/uL Nucleated Red Blood Cells 0.1 % Sodium Level 140 136-145 mmol/L Potassium Level 4.1 3.5-5.1 mmol/L Chloride Level 103 98-107 mmol/L Carbon Dioxide Level 28 20-31 mmol/L Anion Gap 9 5-15 Blood Urea Nitrogen 19 9-23 mg/dL Creatinine 0.81 0.550-1.02 mg/dL Glomerular Filtration Rate Calc 69 >90 mL/min BUN/Creatinine Ratio 23.5 H 10.0-20.0 Serum Glucose 106 74-106 mg/dL Lactic Acid Level 0.7 0.4-2.0 mmol/L Calcium Level 9.3 8.7-10.4 mg/dL Current Medications Medications (Trade) Dose Ordered Sig/Shantel Route Start Time Stop Time Status Last Admin Ceftriaxone Sodium 50 ml @ 100 mls/hr ONCE ONCE IV 06/29/24 16:45 06/29/24 17:14 DC 06/29/24 21:12 Vancomycin HCl 250 ml @ 250 mls/hr ONCE ONCE IV 06/29/24 17:00 06/29/24 17:59 DC 06/29/24 18:10 PATIENT: RAMY RODRIGUEZ RACCT: [id number]: [id number] : 1935 LOC: ER ROOM / BED: / AGE / SEX: 89 / F ADM STATUS: REG ER SERVICE 54 ORDERING PHYSICIAN: ANURADHA LOPEZ NP PROCEDURE(s): ABPLIV - CT AB PEL WITH IV CON ONLY REASON: rectal pain. possible abscess formation ORDER NUMBER(s): [id number], ACCESSION NUMBER(s): [id number] Procedure: CT CT AB PEL WITH IV CON ONLY 06/29/2024 03:21 PM Indication: rectal pain. possible abscess formation Comparison Study: None Technique: Axial images were obtained and reformatted in coronal and sagittal planes. All CT scans at this medical facility are performed using dose modulation techniques as appropriate to a performed exam including the following: Automated exposure control was utilized; adjustment of the MA and/or KV according to patient size; and use of iterative reconstruction technique. CT Dose: CTDI volume is 5.4 mGy. Dose-length product is 285 mGy*cm FINDINGS: Lower Chest: Unremarkable. Hepatobiliary: Hepatomegaly. A 2 cm benign-appearing septated cyst is seen in the right hepatic lobe. No calcified gallstone. No intrahepatic or extrahepatic ductal dilatation. Spleen: Unremarkable. Pancreas: Unremarkable. Adrenal Glands: Unremarkable. tract: The kidneys are normal in size bilaterally without hydronephrosis or nephrolithiasis. The urinary bladder is unremarkable. GI tract: The stomach is grossly normal in appearance. No evidence of small bowel obstruction. The large bowel is unremarkable. The appendix is not visualized. No inflammatory change is noted in the right lower quadrant. Lymphatics: No mesenteric, retroperitoneal or periportal lymphadenopathy. Vasculature: The abdominal aorta is normal in caliber. Diffuse calcified plaque formation is noted. Pelvic Organs: Unremarkable Bones/soft tissues: A 2.5 x 1.7 x 2.3 cm subcutaneous abscess is seen in the medial right buttock adjacent to the intergluteal cleft with surrounding subcutaneous edema. Postoperative changes of the left proximal femur. Multilevel degenerative changes of the lumbar spine are noted. Other: None. IMPRESSION: 1. A 2.5 x 2.3 cm medial right gluteal subcutaneous abscess with surrounding cellulitis. No definite erosion of the adjacent coccyx. ATED BY: HEATHER MIRAMONTES MD DICTATED DATE/TIME: 06/29/241616 SIGNED BY: HEATHER MIRAMONTES MD SIGNED DATE/TIME: 06/29/241616 CC: X-Ray, Labs, Meds, VS Comment The patient presents with s/s consistent with dx. Patients work up was remarkable for A 2.5 x 2.3 cm medial right gluteal subcutaneous abscess with surrounding cellulitis. No definite erosion of the adjacent coccyx. The patient's workup reveals that the patient needs further treatment and antibiotic for the above medical condition. Patient verbalized understanding of the above and is awaiting further evaluation by the admitting service. Time of 1ST Reevaluation: 16:31 Reevaluation 1ST: Improved Patient Education/Counseling: Diagnosis, Treatment Family Education/Counseling: Diagnosis, Treatment Departure 1 Departure Time of Disposition: 16:36 Impression: Primary Impression: Abscess, gluteal, right Additional Impression: Cellulitis, gluteal, right Disposition: 09 ADMITTED INPATIENT Condition: Fair Discharged With: Self Critical Care Note Critical Care Time?: No Stability Stability form required: No Heart Score Heart Score: Heart Score Response (Comments) Value History N/A 0 EKG N/A 0 Age N/A 0 Risk Factors N/A 0 Troponin N/A 0 Total 0 ANURADHA LOPEZ NP Jun 29, 2024 16:36
[2024-06-29] MEDS ORDERED: VANCOMYCIN PER PHARMACY 0 MG IV SCH ×2 (16:45→19:30)
[2024-06-29] MEDS: VANCOMYCIN 1GM/250ML KIT 250 ML IV ONE (18:10)
[2024-06-29] MEDS: cefTRIAXone 1GM/50ML D5W 50 ML IV ONE (21:12)
[2024-06-29] MEDS: METOPROLOL SUCCINATE XL 50 MG TAB PO ONE (21:14)
[2024-06-29] MEDS: APIXABAN 2.5 MG TAB PO SCH (22:00)
[2024-06-29] MEDS: ATORVASTATIN 20 MG TAB PO SCH (22:00)
[2024-06-29 23:04] VITALS: BP 139/70; PULSE 91; RESP 18; TEMP 97.7; O2SAT 90
[2024-06-30] VITALS (9 sets, daily range): BP systolic 104–137; BP diastolic 55–77; PULSE 61–83; RESP 16–19; TEMP 97.8–98.2; O2SAT 95–99
[2024-06-30] MEDS ORDERED: ESCI1TAB36 PO (02:09)
--- NOTE | 2024-06-30 04:30 | DVHHP2 ---
History of Present Illness Reason for Visit: Right gluteal abscess History of Present Illness 89-year-old female presents for evaluation of possible abscess. Patient reports developing tenderness to her right gluteal area five days ago. She states that yesterday she started feeling tenderness at the site and has felt a lump developing. She reports occasional chills. Denies any trauma to the area. No other acute complaints reported. Past Medical History Hypertension, hypothyroid, dyslipidemia Past Surgical History Hysterectomy Family History Noncontributory Smoke: No ALCOHOL: none Drugs: None Lives: with Family Review of Systems Review of Systems Review of systems are currently negative otherwise addressed in HPI. Allergies: Coded Allergies: Amoxicillin (Verified Allergy, Severe, 01/18/17) Azithromycin (Verified Allergy, Unknown, 01/18/17) Medications Current Medications Medications Dose Ordered Sig/Shantel Route Start Time Stop Time Status Last Admin Dose Admin Vancomycin HCl 0 ml @ 0 mls/hr UD IV 06/29/24 16:45 Ceftriaxone Sodium 50 ml @ 100 mls/hr DAILY@09 IV 06/30/24 09:00 Vancomycin HCl 0 ml @ 0 mls/hr UD IV 06/29/24 19:30 UNV Apixaban 2.5 mg BID PO 06/29/24 22:00 06/29/24 22:00 2.5 MG Levothyroxine Sodium 50 mcg QAM@0600 PO 06/30/24 06:00 Metoprolol Succinate 25 mg DAILY PO 06/30/24 10:00 Pantoprazole Sodium 40 mg DAILY@0600 PO 06/30/24 06:00 Atorvastatin Calcium 20 mg HS PO 06/29/24 22:00 06/29/24 22:00 20 MG Acetaminophen/ Hydrocodone Bitart 1 tab Q4HP PRN PO 06/29/24 19:30 Ondansetron HCl 4 mg Q4HP PRN IV 06/29/24 19:30 Acetaminophen 650 mg Q6HP PRN PO 06/29/24 19:30 Exam Vital Signs Vital Signs Date Time Temp Pulse Resp B/P (MAP) Pulse Ox O2 Delivery O2 Flow Rate FiO2 06/30/24 01:36 61 16 99 Nasal Cannula* 2 28 06/30/24 01:00 97.8 130/58 (82) 97.8 Exam Gen: 89-year-old female in mild distress Skin: Warm, dry, normal color and texture, right gluteal abscess with surrounding cellulitis HEENT: Normocephalic atraumatic, mucous membranes moist and pink. Neck: Cervical and supraclavicular nodes normal without enlargement, trachea is midline, thyroid gland is normal without masses. Pulmonary: Clear to auscultation and percussion bilaterally. Cardiac: Regular rate and rhythm. No murmur Abdomen: Soft, nontender, nondistended, bowel sounds present all 4 quadrants, no guarding, no rigidity, no organomegaly. Extremities: No cyanosis, clubbing, no edema Neuro: Cranial nerves II through XII grossly intact, normal affect and speech, no focal motor deficits. Labs/Xrays ORDERING PHYSICIAN: ANURADHA LOPEZ NP PROCEDURE(s): ABPLIV - CT AB PEL WITH IV CON ONLY REASON: rectal pain. possible abscess formation ORDER NUMBER(s): [id number], ACCESSION NUMBER(s): [id number] Procedure: CT CT AB PEL WITH IV CON ONLY 06/29/2024 03:21 PM Indication: rectal pain. possible abscess formation Comparison Study: None Technique: Axial images were obtained and reformatted in coronal and sagittal planes. All CT scans at this medical facility are performed using dose modulation techniques as appropriate to a performed exam including the following: Automated exposure control was utilized; adjustment of the MA and/or KV according to patient size; and use of iterative reconstruction technique. CT Dose: CTDI volume is 5.4 mGy. Dose-length product is 285 mGy*cm FINDINGS: Lower Chest: Unremarkable. Hepatobiliary: Hepatomegaly. A 2 cm benign-appearing septated cyst is seen in the right hepatic lobe. No calcified gallstone. No intrahepatic or extrahepatic ductal dilatation. Spleen: Unremarkable. Pancreas: Unremarkable. Adrenal Glands: Unremarkable. tract: The kidneys are normal in size bilaterally without hydronephrosis or nephrolithiasis. The urinary bladder is unremarkable. GI tract: The stomach is grossly normal in appearance. No evidence of small bowel obstruction. The large bowel is unremarkable. The appendix is not visualized. No inflammatory change is noted in the right lower quadrant. Lymphatics: No mesenteric, retroperitoneal or periportal lymphadenopathy. Vasculature: The abdominal aorta is normal in caliber. Diffuse calcified plaque formation is noted. Pelvic Organs: Unremarkable Bones/soft tissues: A 2.5 x 1.7 x 2.3 cm subcutaneous abscess is seen in the medial right buttock adjacent to the intergluteal cleft with surrounding subcutaneous edema. Postoperative changes of the left proximal femur. Multilevel degenerative changes of the lumbar spine are noted. Other: None. IMPRESSION: 1. A 2.5 x 2.3 cm medial right gluteal subcutaneous abscess with surrounding cellulitis. No definite erosion of the adjacent coccyx. ATED BY: HEATHER MIRAMONTES MD DICTATED DATE/TIME: 06/29/24 1617 Labs Test 06/29/24 13:41 Range/Units White Blood Count 8.7 4.4-10.8 10^3/uL Red Blood Count 4.19 4.0-5.20 10^6/uL Hemoglobin 13.7 12.2-16.2 g/dL Hematocrit 40.6 36.0-46.0 % Mean Corpuscular Volume 97.1 80.0-100.0 fL Mean Corpuscular Hemoglobin 32.8 H 28.0-32.0 pg Mean Corpuscular Hemoglobin Concent 33.8 32.0-36.0 g/dL Red Cell Distribution Width 14.1 11.8-14.3 % Platelet Count 285 140-450 10^3/uL Mean Platelet Volume 10.8 6.9-10.8 fL Neutrophils (%) (Auto) 79.1 37.0-80.0 % Lymphocytes (%) (Auto) 12.3 10.0-50.0 % Monocytes (%) (Auto) 6.9 0.0-12.0 % Eosinophils (%) (Auto) 1.4 0.0-7.0 % Basophils (%) (Auto) 0.3 0.0-2.0 % Neutrophils # (Auto) 6.9 1.6-8.6 10 ^3/uL Lymphocytes # (Auto) 1.1 0.4-5.4 10 ^3/uL Monocytes # (Auto) 0.6 0-1.3 10 ^3/uL Eosinophils # (Auto) 0.1 0-0.8 10 ^3/uL Basophils # (Auto) 0 0-0.2 10 ^3/uL Nucleated Red Blood Cells 0.1 % Sodium Level 140 136-145 mmol/L Potassium Level 4.1 3.5-5.1 mmol/L Chloride Level 103 98-107 mmol/L Carbon Dioxide Level 28 20-31 mmol/L Anion Gap 9 5-15 Blood Urea Nitrogen 19 9-23 mg/dL Creatinine 0.81 0.550-1.02 mg/dL Glomerular Filtration Rate Calc 69 >90 mL/min BUN/Creatinine Ratio 23.5 H 10.0-20.0 Serum Glucose 106 74-106 mg/dL Lactic Acid Level 0.7 0.4-2.0 mmol/L Calcium Level 9.3 8.7-10.4 mg/dL Assessment/Plan Assessment/Plan Assessment Right gluteal abscess with cellulitis Cachexia Hypertension Plan Admit the patient to Med surge to the hospitalist Surgical consultation Rocephin/vancomycin Resume home medications Continue treatment per orders. Plan discussed with: Patient My Orders Orders - VIDYA TATE Procedure Category Date Status Time Ceftriaxone 1gm/50ml PHA 06/30/24 In Process D5w (Rocephin) 09:00 Vancomycin Per PHA 06/29/24 Pending Pharmacy 19:30 Apixaban (Eliquis) PHA 06/29/24 In Process 22:00 Levothyroxine Tablet PHA 06/30/24 In Process (Synthroid Tablet) 06:00 Metoprolol Xl PHA 06/30/24 In Process Succinate (Toprol Xl) 10:00 Pantoprazole Tablet PHA 06/30/24 In Process (Protonix Tablet) 06:00 Atorvastatin (Lipitor) PHA 06/29/24 In Process 22:00 Basic Metabolic Panel LAB 06/30/24 Logged 04:00 * Surgical Consult CONS 06/29/24 Transmitted Admit ADMIT 06/29/24 Transmitted 19:24 Hydrocodone-Acet PHA 06/29/24 In Process 5/325mg Tab (Waldo 19:30 Ondansetron Hcl PHA 06/29/24 In Process (Zofran) 19:30 Complete Blood Count LAB 06/30/24 Logged 04:00 Cardiac DIET 06/30/24 Transmitted Diet-2gna,Lofat,Lochol Breakfast Condition: Stable SOCORRO 06/29/24 In Process 19:24 Acetaminophen Tablet PHA 06/29/24 In Process (Tylenol Tablet) 19:30 Bedrest With Bathroom SOCORRO 06/29/24 In Process Privileg 19:24 * Wound Consult CONS 06/30/24 Transmitted Date of Service: Jun 29, 2024 Billing Provider: VIDYA TATE Common Visit Codes: [id number] INP/OBS CARE (HIGH) VIDYA TATE Jun 30, 2024 04:30
[2024-06-30] MEDS: PANTOPRAZOLE 40 MG TAB PO SCH (05:12)
[2024-06-30] MEDS: LEVOTHYROXINE SODIUM 50 MCG TAB PO SCH (05:12)
[2024-06-30 07:32] LABS: Basophils # (auto) 0 10 ^3/uL (0-0.2); Basophils % (auto) 0.3 % (0.0-2.0); Eosinophils # (auto) 0.3 10 ^3/uL (0-0.8); Eosinophils % (auto) 3.6 % (0.0-7.0); Hematocrit 41.2 % (36.0-46.0); Hemoglobin 13.2 g/dL (12.2-16.2); Lymphocytes # (auto) 0.9 10 ^3/uL (0.4-5.4); Lymphocytes % (auto) 10.9 % (10.0-50.0); Mean Corpuscular Hemoglobin 31.4 pg (28.0-32.0); Mean Corpuscular Volume 98.1 fL (80.0-100.0); Monocytes # (auto) 0.7 10 ^3/uL (0-1.3); Monocytes % (auto) 8.1 % (0.0-12.0); Neutrophils # (auto) 6.3 10 ^3/uL (1.6-8.6); Neutrophils % (auto) 77.1 % (37.0-80.0); Platelet Count (auto) 292 10^3/uL (140-450); Red Cell Distribution Width 13.8 % (11.8-14.3); White Blood Cell 8.1 10^3/uL (4.4-10.8)
[2024-06-30 07:45] LABS: Chloride 105 mmol/L (98-107); Sodium 142 mmol/L (136-145)
[2024-06-30 07:46] LABS: Anion Gap 8 (5-15); Calcium 9.1 mg/dL (8.7-10.4); Carbon Dioxide 29 mmol/L (20-31)
[2024-06-30 07:51] LABS: BUN/Creatinine Ratio 23.9 (10.0-20.0); Blood Urea Nitrogen 21 mg/dL (9-23); Glucose 92 mg/dL (74-106)
[2024-06-30] MEDS: cefTRIAXone 1GM/50ML D5W 50 ML IV SCH (09:01)
[2024-06-30] MEDS: METOPROLOL SUCCINATE XL 50 MG TAB PO SCH (09:03)
--- NOTE | 2024-06-30 09:22 | DVHINCON2 ---
Date of service: Jun 30, 2024 Reason for Consultation gluteal abscess History of Present Illness History Source: Patient Exam Limitations: No limitations HPI 89-year-old female presented to the ER for evaluation of a gluteal abscess. Patient states she has diverticulitis and thinks the abscess occurred from wiping. Patient states the pain started about 5 days ago and the pain became worse and yesterday she felt a lump. She reports occasional chills however today she has no chills and feeling slightly better. . Denies any trauma to the area. Home Meds Active Scripts Benzonatate (Benzonatate) 200 Mg Cap, 1 CAP PO TID, #30 CAP Prov:SHYAM BONDS 03/07/24 Levofloxacin Hemihydrate (LEVAQUIN 500 MG) 500 Mg Tab, 1 TAB PO DAILY, #10 TAB Prov:SHYAM BONDS 03/07/24 Doxycycline Hyclate (DOXYCYCLINE HYCLATE) 100 Mg Tab, 1 TAB PO BID for 7 Days, #14 TAB 0 Refills Prov:ANURADHA LOPEZ CORPORATE ETHICS OFFICER 02/17/24 Clindamycin Hcl (Clindamycin Hcl) 300 Mg Cap, 1 CAP PO TID for 7 Days, #21 CAP Prov:SYLVESTER BRODERICK IMPROVEMENT SPEC 02/04/24 Acetaminophen (Tylenol 8 Hour Arthritis) 650 Mg Tab, 650 MG PO TID, #30 TAB Prov:SHYAM BONDS 12/07/23 Cephalexin Monohydrate (Cephalexin) 500 Mg Cap, 1 CAP PO TID, #30 CAP Prov:SHYAM BONDS 12/07/23 Cephalexin ( Keflex 500) 500 Mg Cap, 1 CAP PO TID for 7 Days, #21 CAP Prov:SHYAM BONDS 06/21/22 Reported Medications Escitalopram Oxalate (ESCITALOPRAM OXALATE) 10 Mg Tab, 5 MG PO, TAB 06/30/24 Probiotic Product (Acidophilus) 1 Chw Chw, 1 CHW PO DAILY, TAB.CHEW 01/28/20 Cholecalciferol (D3-1000) 1,000 Unit Tab, 1000 UNIT PO DAILY, TAB 01/28/20 Multiple Vitamins W/ Minerals (Multivitamin) 1 Tab Tab, 1 TAB PO DAILY, TAB 01/28/20 Apixaban Base (ELIQUIS) 2.5 Mg Tab, 2.5 MG PO BID, TAB 01/28/20 Latanoprost (Xalatan) 0.005 % Yadira, 1 DROP EACHEYE QPM, #2.5 ML 6 Refills 01/28/20 Metoprolol Tartrate (Metoprolol Tartrate) 25 Mg Tab, 25 MG PO BID for 30 Days, MG 01/28/20 Simvastatin (Simvastatin) 20 Mg Tab, 20 MG PO HS for 30 Days 01/21/20 Fluticasone Propionate (Flovent Hfa) 220 Mcg Aer, 2 PUFF INH Q12HR, MCG 01/21/20 Levothyroxine Sodium (Levothyroxine Sodium) 50 Mcg Tab, 50 MCG PO QAM for 30 Days, MCG 01/21/20 Pantoprazole Sodium Sesquihydr (Pantoprazole Sodium) 40 Mg Tab, 40 MG PO DAILY 10/12/19 Latanoprost (LATANOPROST) 0.005 % Yadira, 1 DROP EACHEYE HS 10/12/19 Metoprolol Succinate (Metoprolol Succinate Er) 25 Mg Tab, 25 MG PO DAILY 10/12/19 Fluticasone Propionate (FLOVENT HFA 110Mcg INH) 110 Mcg Ih, 110 MCG INH Q12HR for 30 Days, MCG 01/18/17 Simvastatin (Simvastatin) 20 Mg Tab, 20 MG PO HS 12/16/11 Levothyroxine Sodium (Levothyroxine Sodium) 25 Mcg Tab, 50 MCG PO QAM 12/16/11 Past Medical History Cardiac: HTN, Hyperlipidemia Pulmonary: No pertinent Hx Central Nervous System: No pertinent Hx GI: No pertinent Hx Hemotology/Oncology: No pertinent Hx Hepatobiliary: No pertinent Hx Psychiatric: No pertinent Hx Musculoskeletal: No pertinent Hx Rheumotologic: No pertinent Hx Infectious Disease: No peritnent Hx ENT: No pertinent Hx Renal/: No pertinent Hx Endocrine: Hypothyroidism Dermatology: No pertinent Hx Past Surgical History: Hysterctomy Patient Family History: Alzheimer's disease G8 BROTHER Asthma G8 MOTHER Cancer FH: asthma FH: prostate cancer G8 FATHER Smoker: No Hx (Negative) Alocohol: None Drugs: None Lives with: With family Review of Systems Comments Review of systems are currently negative otherwise addressed in HPI Constitutional: No symptom reported Ears, Nose, & Throat: No symptom reported Eyes: No symptom reported Pulmonary/Respiratory: No symptom reported Cardiovascular: No symptom reported Gastrointestinal: No symptom reported Genitourinary: No symptom reported Musculoskeletal: No symptom reported Skin: Other (gluteal lump) Psychiatric: No symptom reported Endocrine: No symptom reported Hemotologic/Lymphatic: No symptom reported H&P Exam Vital Signs Vital Signs Date Time Temp Pulse Resp B/P (MAP) Pulse Ox O2 Delivery O2 Flow Rate FiO2 06/30/24 05:00 97.9 83 18 137/77 (97) 97 97.9 06/30/24 01:36 Nasal Cannula* 2 28 General Appeara: Well developed, Well nourished, Normal Appearance Head Exam: Normal inspection Eye Exam: bilateral eye Normal inspection Nasal Exam: Normal inspection Mouth: Normal Inspection Abdominal Exam: Normal bowel sounds, Soft Neuro/Mental St: Alert, Oriented Appearance: Appropriate appearance Eye contact/ Speech: Cooperative, Good eye contact, Normal speech Thoughts/Psych: Normal thought pattern Skin Exam: Other (right gluteal abscess) Labs/Xrays Labs Test 06/30/24 06:54 06/29/24 13:41 Range/Units White Blood Count 8.1 4.4-10.8 10^3/uL Red Blood Count 4.20 4.0-5.20 10^6/uL Hemoglobin 13.2 12.2-16.2 g/dL Hematocrit 41.2 36.0-46.0 % Mean Corpuscular Volume 98.1 80.0-100.0 fL Mean Corpuscular Hemoglobin 31.4 28.0-32.0 pg Mean Corpuscular Hemoglobin Concent 32.0 32.0-36.0 g/dL Red Cell Distribution Width 13.8 11.8-14.3 % Platelet Count 292 140-450 10^3/uL Mean Platelet Volume 10.6 6.9-10.8 fL Neutrophils (%) (Auto) 77.1 37.0-80.0 % Lymphocytes (%) (Auto) 10.9 10.0-50.0 % Monocytes (%) (Auto) 8.1 0.0-12.0 % Eosinophils (%) (Auto) 3.6 0.0-7.0 % Basophils (%) (Auto) 0.3 0.0-2.0 % Neutrophils # (Auto) 6.3 1.6-8.6 10 ^3/uL Lymphocytes # (Auto) 0.9 0.4-5.4 10 ^3/uL Monocytes # (Auto) 0.7 0-1.3 10 ^3/uL Eosinophils # (Auto) 0.3 0-0.8 10 ^3/uL Basophils # (Auto) 0 0-0.2 10 ^3/uL Nucleated Red Blood Cells 0.0 % Sodium Level 142 136-145 mmol/L Potassium Level 4.0 3.5-5.1 mmol/L Chloride Level 105 98-107 mmol/L Carbon Dioxide Level 29 20-31 mmol/L Anion Gap 8 5-15 Blood Urea Nitrogen 21 9-23 mg/dL Creatinine 0.88 0.550-1.02 mg/dL Glomerular Filtration Rate Calc 63 >90 mL/min BUN/Creatinine Ratio 23.9 H 10.0-20.0 Serum Glucose 92 74-106 mg/dL Calcium Level 9.1 8.7-10.4 mg/dL Lactic Acid Level 0.7 0.4-2.0 mmol/L Assessment/Plan Problem List: (1) Abscess, gluteal, right Primary Diagnosis right gluteal abscess Plan right gluteal abscess about 1.5 cm x 1.5 cm lump no drainage , slight erythema, tender to touch patient states improvement with antibiotics Plan: keep pressure off the area IV antibiotics Dr. James will reevaluate Plan discussed with: Patient, Other (Dr. James) Visit Coding Surgery Date of Service if different f: Jun 30, 2024 Billing Provider: MENDOZA DUBON MD Surgery Visit Codes: [id number] - INP CONSULT <80 MIN LIVE [facility] Jun 30, 2024 09:22
[2024-06-30] MEDS: HYDROcodone-ACET 5/325MG TAB PO PRN (10:03)
--- NOTE | 2024-06-30 15:04 | DVHPN2 ---
Subjective 89-year-old female came with a chief complaint of a bump on her right gluteal area She is also constipated and she is complaining of leg cramps Changes from previous H/P or p: Changes Objective Vitals Vital Signs Date Time Temp Pulse Resp B/P (MAP) Pulse Ox O2 Delivery O2 Flow Rate FiO2 06/30/24 13:00 97.8 73 18 123/56 (78) 97 97.8 06/30/24 01:36 Nasal Cannula* 2 28 Intake/Output Intake and Output 06/30/24 07:00 Intake Total 0 ml Balance 0 ml Intake Oral 0 ml # Voids 2 General Appearance: Alert, Oriented X3 Lungs: Clear to auscultation, Normal air movement Cardiovascular: Regular rate, Normal S1 Abdomen: Normal bowel sounds, Soft, No tenderness Extremities: No edema Medications Current Medications Medications Dose Ordered Sig/Shantel Route Start Time Stop Time Status Last Admin Dose Admin Ceftriaxone Sodium 50 ml @ 100 mls/hr DAILY@09 IV 06/30/24 09:00 06/30/24 09:01 100 MLS/HR Vancomycin HCl 0 ml @ 0 mls/hr UD IV 06/29/24 19:30 Apixaban 2.5 mg BID PO 06/29/24 22:00 06/30/24 09:02 2.5 MG Levothyroxine Sodium 50 mcg QAM@0600 PO 06/30/24 06:00 06/30/24 05:12 50 MCG Metoprolol Succinate 25 mg DAILY PO 06/30/24 10:00 06/30/24 09:03 25 MG Pantoprazole Sodium 40 mg DAILY@0600 PO 06/30/24 06:00 06/30/24 05:12 40 MG Atorvastatin Calcium 20 mg HS PO 06/29/24 22:00 06/29/24 22:00 20 MG Acetaminophen/ Hydrocodone Bitart 1 tab Q4HP PRN PO 06/29/24 19:30 06/30/24 10:03 1 TAB Ondansetron HCl 4 mg Q4HP PRN IV 06/29/24 19:30 Acetaminophen 650 mg Q6HP PRN PO 06/29/24 19:30 Vancomycin HCl 100 ml @ 100 mls/hr Q24H IV 06/30/24 16:00 Laboratory Results Laboratory Tests 06/30/24 06:54 Chemistry Test 06/30/24 06:54 Calcium Level 9.1 mg/dL (8.7-10.4) Assessment/Plan Assessment/Plan Right gluteal abscess Leg cramps possible restless leg syndrome Constipation Hypertension Hypothyroidism Dyslipidemia Plan Continue IV antibiotics Surgical consult recommended to continue IV antibiotics for now and we will re- evaluate for possible incision and drainage The patient is feeling better today compared to yesterday's therefore we will continue the antibiotics for now Give lactulose and Colace Mirapex for the restless legs syndrome Surgical consult is on the casey saw operator closely The rest of the management will depend on the hospital course Plan discussed with: Patient Date of Service: Jun 30, 2024 Billing Provider: MANNY SHAW MD Common Visit Codes: [id number] INP/OBS CARE(HIGH) MANNY SHAW MD Jun 30, 2024 15:04
--- NOTE | 2024-06-30 15:13 | DVHINCON2 ---
Date of service: Jun 30, 2024 History of Present Illness 89-year-old female admitted secondary to pain in her right gluteal region for past several days. However patient reports significant improvement in her symptoms today and no longer hurts. Denies any drainage from the area. Denies any fevers or chills. Past Medical History Hypertension. Hypothyroidism. Dyslipidemia. Past Surgical History Hysterectomy Family History: Alzheimer's disease G8 BROTHER Asthma G8 MOTHER Cancer FH: asthma FH: prostate cancer G8 FATHER Family History Noncontributory Social History No alcohol, tobacco, IV drug use Allergies: Coded Allergies: Amoxicillin (Verified Allergy, Severe, 01/18/17) Azithromycin (Verified Allergy, Unknown, 01/18/17) Home Meds Active Scripts Benzonatate (Benzonatate) 200 Mg Cap, 1 CAP PO TID, #30 CAP Prov:SHYAM BONDS 03/07/24 Levofloxacin Hemihydrate (LEVAQUIN 500 MG) 500 Mg Tab, 1 TAB PO DAILY, #10 TAB Prov:SHYAM BONDS 03/07/24 Doxycycline Hyclate (DOXYCYCLINE HYCLATE) 100 Mg Tab, 1 TAB PO BID for 7 Days, #14 TAB 0 Refills Prov:ANURADHA LOPEZ SPECIAL EDUCATION EDUCATIONAL ASSISTANT 02/17/24 Clindamycin Hcl (Clindamycin Hcl) 300 Mg Cap, 1 CAP PO TID for 7 Days, #21 CAP Prov:SYLVESTER BRODERICKP 02/04/24 Acetaminophen (Tylenol 8 Hour Arthritis) 650 Mg Tab, 650 MG PO TID, #30 TAB Prov:SHYAM BONDS 12/07/23 Cephalexin Monohydrate (Cephalexin) 500 Mg Cap, 1 CAP PO TID, #30 CAP Prov:SHYAM BONDS 12/07/23 Cephalexin ( Keflex 500) 500 Mg Cap, 1 CAP PO TID for 7 Days, #21 CAP Prov:SHYAM BONDS 06/21/22 Reported Medications Escitalopram Oxalate (ESCITALOPRAM OXALATE) 10 Mg Tab, 5 MG PO, TAB 06/30/24 Probiotic Product (Acidophilus) 1 Chw Chw, 1 CHW PO DAILY, TAB.CHEW 01/28/20 Cholecalciferol (D3-1000) 1,000 Unit Tab, 1000 UNIT PO DAILY, TAB 01/28/20 Multiple Vitamins W/ Minerals (Multivitamin) 1 Tab Tab, 1 TAB PO DAILY, TAB 01/28/20 Apixaban Base (ELIQUIS) 2.5 Mg Tab, 2.5 MG PO BID, TAB 01/28/20 Latanoprost (Xalatan) 0.005 % Yadira, 1 DROP EACHEYE QPM, #2.5 ML 6 Refills 01/28/20 Metoprolol Tartrate (Metoprolol Tartrate) 25 Mg Tab, 25 MG PO BID for 30 Days, MG 01/28/20 Simvastatin (Simvastatin) 20 Mg Tab, 20 MG PO HS for 30 Days 01/21/20 Fluticasone Propionate (Flovent Hfa) 220 Mcg Aer, 2 PUFF INH Q12HR, MCG 01/21/20 Levothyroxine Sodium (Levothyroxine Sodium) 50 Mcg Tab, 50 MCG PO QAM for 30 Days, MCG 01/21/20 Pantoprazole Sodium Sesquihydr (Pantoprazole Sodium) 40 Mg Tab, 40 MG PO DAILY 10/12/19 Latanoprost (LATANOPROST) 0.005 % Yadira, 1 DROP EACHEYE HS 10/12/19 Metoprolol Succinate (Metoprolol Succinate Er) 25 Mg Tab, 25 MG PO DAILY 10/12/19 Fluticasone Propionate (FLOVENT HFA 110Mcg INH) 110 Mcg Ih, 110 MCG INH Q12HR for 30 Days, MCG 01/18/17 Simvastatin (Simvastatin) 20 Mg Tab, 20 MG PO HS 12/16/11 Levothyroxine Sodium (Levothyroxine Sodium) 25 Mcg Tab, 50 MCG PO QAM 12/16/11 Current Medications Current Medications Medications (Trade) Dose Ordered Sig/Shantel Route PRN Reason Start Time Stop Time Status Last Admin Vancomycin HCl 0 ml @ 0 mls/hr UD IV 06/29/24 16:45 06/30/24 09:30 DC Ceftriaxone Sodium 50 ml @ 100 mls/hr DAILY@09 IV 06/30/24 09:00 06/30/24 09:01 Vancomycin HCl 0 ml @ 0 mls/hr UD IV 06/29/24 19:30 Apixaban (Eliquis) 2.5 mg BID PO 06/29/24 22:00 06/30/24 09:02 Levothyroxine Sodium (Synthroid Tablet) 50 mcg QAM@0600 PO 06/30/24 06:00 06/30/24 05:12 Metoprolol Succinate (Toprol Xl) 25 mg DAILY PO 06/30/24 10:00 06/30/24 09:03 Pantoprazole Sodium (Protonix Tablet) 40 mg DAILY@0600 PO 06/30/24 06:00 06/30/24 05:12 Atorvastatin Calcium (Lipitor) 20 mg HS PO 06/29/24 22:00 06/29/24 22:00 Acetaminophen/ Hydrocodone Bitart ([place] 5/325MG Tab) 1 tab Q4HP PRN PO MODERATE PAIN (4-6 PAIN SCALE) 06/29/24 19:30 06/30/24 10:03 Ondansetron HCl (Zofran) 4 mg Q4HP PRN IV NAUSEA / VOMITING 06/29/24 19:30 Acetaminophen (Tylenol Tablet) 650 mg Q6HP PRN PO PAIN SCALE 1-3 OR TEMP>100.4 06/29/24 19:30 Vancomycin HCl 100 ml @ 100 mls/hr Q24H IV 06/30/24 16:00 Pramipexole Dihydrochloride (Mirapex Tablet) 0.25 mg HS PO 06/30/24 22:00 UNV Docusate Sodium (Colace Capsule) 100 mg BID PO 06/30/24 22:00 UNV Vital Signs Vital Signs Date Time Temp Pulse Resp B/P (MAP) Pulse Ox O2 Delivery O2 Flow Rate FiO2 06/30/24 13:00 97.8 73 18 123/56 (78) 97 97.8 06/30/24 01:36 Nasal Cannula* 2 28 Physical Exam GEN: Elderly female in no acute distress. Alert. HEENT: Normocephalic atraumatic. Moist mucous membranes. Anicteric sclerae. CV: RRR Respiratory: CTAB ABD: Soft Skin: There is a 5 x 3 cm slightly indurated area in the right perianal region without drainage or tenderness to palpation. CT pelvis: 2.5 x 2.3 cm medial right gluteal subcutaneous abscess with surrounding cellulitis. Labs/Diagnostic Data Labs Test 06/30/24 06:54 06/29/24 13:41 Range/Units White Blood Count 8.1 4.4-10.8 10^3/uL Red Blood Count 4.20 4.0-5.20 10^6/uL Hemoglobin 13.2 12.2-16.2 g/dL Hematocrit 41.2 36.0-46.0 % Mean Corpuscular Volume 98.1 80.0-100.0 fL Mean Corpuscular Hemoglobin 31.4 28.0-32.0 pg Mean Corpuscular Hemoglobin Concent 32.0 32.0-36.0 g/dL Red Cell Distribution Width 13.8 11.8-14.3 % Platelet Count 292 140-450 10^3/uL Mean Platelet Volume 10.6 6.9-10.8 fL Neutrophils (%) (Auto) 77.1 37.0-80.0 % Lymphocytes (%) (Auto) 10.9 10.0-50.0 % Monocytes (%) (Auto) 8.1 0.0-12.0 % Eosinophils (%) (Auto) 3.6 0.0-7.0 % Basophils (%) (Auto) 0.3 0.0-2.0 % Neutrophils # (Auto) 6.3 1.6-8.6 10 ^3/uL Lymphocytes # (Auto) 0.9 0.4-5.4 10 ^3/uL Monocytes # (Auto) 0.7 0-1.3 10 ^3/uL Eosinophils # (Auto) 0.3 0-0.8 10 ^3/uL Basophils # (Auto) 0 0-0.2 10 ^3/uL Nucleated Red Blood Cells 0.0 % Sodium Level 142 136-145 mmol/L Potassium Level 4.0 3.5-5.1 mmol/L Chloride Level 105 98-107 mmol/L Carbon Dioxide Level 29 20-31 mmol/L Anion Gap 8 5-15 Blood Urea Nitrogen 21 9-23 mg/dL Creatinine 0.88 0.550-1.02 mg/dL Glomerular Filtration Rate Calc 63 >90 mL/min BUN/Creatinine Ratio 23.9 H 10.0-20.0 Serum Glucose 92 74-106 mg/dL Calcium Level 9.1 8.7-10.4 mg/dL Lactic Acid Level 0.7 0.4-2.0 mmol/L Assessment 1. Small right gluteal abscess clinically improving. Plan/Recommendation 1. Continue with IV antibiotics. We will add a topical antibiotic ointment as well to be applied twice a day. If it worsens tomorrow we will proceed with the incision and drainage. However if she is continuing to improve, we will treat conservatively. Plan discussed with: Patient JENNIFER HODGSON MD Jun 30, 2024 15:13
[2024-06-30] MEDS: VANCOMYCIN 750MG KIT 100 ML IV SCH (17:00)
[2024-06-30] MEDS: LACTULOSE 20Gm/30ML SOLN PO ONE (17:43)
[2024-06-30] MEDS: PRAMIPEXOLE DIHYDROCHLORIDE MO 0.25 MG TAB PO ONE (17:43)
[2024-06-30] MEDS: DOCUSATE SOD 100 MG CAP PO ONE (17:43)
[2024-06-30] MEDS: PRAMIPEXOLE DIHYDROCHLORIDE MO 0.25 MG TAB PO SCH (21:16)
[2024-06-30] MEDS: NEOMYCIN-BACITRACIN-POLYM 15GM TOP OINT TOP SCH (21:16)
[2024-06-30] MEDS: DOCUSATE SOD 100 MG CAP PO SCH (21:16)
[2024-06-30] MEDS: ACETAMINOPHEN 325 MG TAB PO PRN (21:17)
[2024-07-01] VITALS (8 sets, daily range): BP systolic 98–157; BP diastolic 54–82; PULSE 61–77; RESP 17–20; TEMP 97.5–98.7; O2SAT 96–99
[2024-07-01] MEDS: ONDANSETRON HCL 4 MG/2 ML VIAL IV PRN (03:12)
[2024-07-01 06:58] LABS: Basophils # (auto) 0 10 ^3/uL (0-0.2); Basophils % (auto) 0.3 % (0.0-2.0); Eosinophils # (auto) 0.2 10 ^3/uL (0-0.8); Eosinophils % (auto) 2.6 % (0.0-7.0); Hematocrit 40.2 % (36.0-46.0); Hemoglobin 13.1 g/dL (12.2-16.2); Lymphocytes # (auto) 0.5 10 ^3/uL (0.4-5.4); Lymphocytes % (auto) 5.6 % (10.0-50.0); Mean Corpuscular Hemoglobin 31.9 pg (28.0-32.0); Mean Corpuscular Hgb Conc. 32.6 g/dL (32.0-36.0); Mean Corpuscular Volume 97.7 fL (80.0-100.0); Monocytes # (auto) 0.6 10 ^3/uL (0-1.3); Monocytes % (auto) 6.7 % (0.0-12.0); Neutrophils # (auto) 7.8 10 ^3/uL (1.6-8.6); Neutrophils % (auto) 84.8 % (37.0-80.0); Platelet Count (auto) 295 10^3/uL (140-450); Red Blood Cells 4.12 10^6/uL (4.0-5.20); Red Cell Distribution Width 13.8 % (11.8-14.3); White Blood Cell 9.2 10^3/uL (4.4-10.8)
--- NOTE | 2024-07-01 11:49 | DVHPN2 ---
Subjective No new complaints She still feels the pain on right buttock area No drainage Changes from previous H/P or p: Changes Objective Vitals Vital Signs Date Time Temp Pulse Resp B/P (MAP) Pulse Ox O2 Delivery O2 Flow Rate FiO2 07/01/24 10:00 61 101/54 07/01/24 08:25 98.3 18 97 98.3 06/30/24 20:00 Nasal Cannula* 2 28 Intake/Output Intake and Output 07/01/24 07:00 Intake Total 1515 ml Balance 1515 ml Intake Oral 1365 ml IV Total 150 ml # Voids 6 General Appearance: Alert, Oriented X3 Lungs: Clear to auscultation, Normal air movement Cardiovascular: Regular rate, Normal S1 Abdomen: Normal bowel sounds, Soft, No tenderness Extremities: No edema Medications Current Medications Medications Dose Ordered Sig/Shantel Route Start Time Stop Time Status Last Admin Dose Admin Ceftriaxone Sodium 50 ml @ 100 mls/hr DAILY@09 IV 06/30/24 09:00 07/01/24 11:04 100 MLS/HR Vancomycin HCl 0 ml @ 0 mls/hr UD IV 06/29/24 19:30 Apixaban 2.5 mg BID PO 06/29/24 22:00 07/01/24 11:04 2.5 MG Levothyroxine Sodium 50 mcg QAM@0600 PO 06/30/24 06:00 07/01/24 05:24 50 MCG Metoprolol Succinate 25 mg DAILY PO 06/30/24 10:00 06/30/24 09:03 25 MG Pantoprazole Sodium 40 mg DAILY@0600 PO 06/30/24 06:00 07/01/24 05:24 40 MG Atorvastatin Calcium 20 mg HS PO 06/29/24 22:00 06/30/24 21:16 20 MG Acetaminophen/ Hydrocodone Bitart 1 tab Q4HP PRN PO 06/29/24 19:30 07/01/24 11:05 1 TAB Ondansetron HCl 4 mg Q4HP PRN IV 06/29/24 19:30 07/01/24 03:12 4 MG Acetaminophen 650 mg Q6HP PRN PO 06/29/24 19:30 06/30/24 21:17 650 MG Vancomycin HCl 100 ml @ 100 mls/hr Q24H IV 06/30/24 16:00 06/30/24 17:00 100 MLS/HR Pramipexole Dihydrochloride 0.25 mg HS PO 06/30/24 22:00 06/30/24 21:16 0.25 MG Docusate Sodium 100 mg BID PO 06/30/24 22:00 07/01/24 11:04 100 MG Neomycin/ Polymyxin/ Bacitracin 1 applic BID TOP 06/30/24 22:00 07/01/24 11:21 1 APPLIC Laboratory Results Laboratory Tests 06/30/24 06:54 07/01/24 05:37 Assessment/Plan Assessment/Plan Right gluteal abscess Leg cramps possible restless leg syndrome Constipation Hypertension Hypothyroidism Dyslipidemia Plan Continue IV antibiotics Surgical consult recommended to continue IV antibiotics for now and we will re- evaluate for possible incision and drainage The patient is feeling better today compared to yesterday's therefore we will continue the antibiotics for now Give lactulose and Colace Mirapex for the restless legs syndrome Surgical consult is on the casework supervisor closely The rest of the management will depend on the hospital course 07/01/2024: Continue IV antibiotics Rocephin and vancomycin Surgical consult is on the casework supervisor closely Add ensure Plan discussed with: Patient My Orders Orders - MANNY SHAW MD Procedure Category Date Status Time Pramipexole Tablet PHA 06/30/24 In Process (Mirapex Tablet) 22:00 Docusate Sodium PHA 06/30/24 In Process Capsule (Colace 22:00 Date of Service: Jul 01, 2024 Billing Provider: MANNY SHAW MD Common Visit Codes: [id number] INP/OBS CARE(HIGH) MANNY SHAW MD Jul 01, 2024 11:49
[2024-07-01] MEDS: Ensure HIGH Protein Chocolate 8oz Bottle PO SCH (12:00)
[2024-07-02] VITALS (8 sets, daily range): BP systolic 107–134; BP diastolic 51–60; PULSE 71–78; RESP 16–19; TEMP 97.7–98.4; O2SAT 95–100
--- NOTE | 2024-07-02 10:15 | DVHPN2 ---
Subjective She is having pain more right now in her right buttock area due to the abscess getting bigger and started some drainage Changes from previous H/P or p: Changes Objective Vitals Vital Signs Date Time Temp Pulse Resp B/P (MAP) Pulse Ox O2 Delivery O2 Flow Rate FiO2 07/02/24 09:38 60 107/65 07/02/24 08:00 18 97 Room Air* 0 21 07/02/24 05:00 98.2 98.2 Intake/Output Intake and Output 07/02/24 07:00 Intake Total 1350 ml Output Total 900 ml Balance 450 ml Intake Oral 1200 ml IV Total 150 ml Output Urine Total 900 ml # Voids 3 General Appearance: Alert, Oriented X3 Lungs: Clear to auscultation, Normal air movement Cardiovascular: Regular rate, Normal S1 Abdomen: Normal bowel sounds, Soft, No tenderness Extremities: No edema Medications Current Medications Medications Dose Ordered Sig/Shantel Route Start Time Stop Time Status Last Admin Dose Admin Ceftriaxone Sodium 50 ml @ 100 mls/hr DAILY@09 IV 06/30/24 09:00 07/01/24 11:04 100 MLS/HR Vancomycin HCl 0 ml @ 0 mls/hr UD IV 06/29/24 19:30 Levothyroxine Sodium 50 mcg QAM@0600 PO 06/30/24 06:00 07/02/24 06:04 50 MCG Metoprolol Succinate 25 mg DAILY PO 06/30/24 10:00 06/30/24 09:03 25 MG Pantoprazole Sodium 40 mg DAILY@0600 PO 06/30/24 06:00 07/02/24 06:04 40 MG Atorvastatin Calcium 20 mg HS PO 06/29/24 22:00 07/01/24 21:24 20 MG Acetaminophen/ Hydrocodone Bitart 1 tab Q4HP PRN PO 06/29/24 19:30 07/01/24 11:05 1 TAB Ondansetron HCl 4 mg Q4HP PRN IV 06/29/24 19:30 07/01/24 03:12 4 MG Acetaminophen 650 mg Q6HP PRN PO 06/29/24 19:30 06/30/24 21:17 650 MG Vancomycin HCl 100 ml @ 100 mls/hr Q24H IV 06/30/24 16:00 07/01/24 17:45 100 MLS/HR Pramipexole Dihydrochloride 0.25 mg HS PO 06/30/24 22:00 07/01/24 21:24 0.25 MG Docusate Sodium 100 mg BID PO 06/30/24 22:00 07/01/24 21:25 100 MG Neomycin/ Polymyxin/ Bacitracin 1 applic BID TOP 06/30/24 22:00 07/02/24 09:38 1 APPLIC Enteral Nutritional Formula 240 ml TIDWM PO 07/01/24 12:00 07/01/24 17:51 240 ML Laboratory Results Laboratory Tests 06/30/24 06:54 07/01/24 05:37 Assessment/Plan Assessment/Plan Right gluteal abscess Leg cramps possible restless leg syndrome Constipation Hypertension Hypothyroidism Dyslipidemia Plan Continue IV antibiotics Surgical consult recommended to continue IV antibiotics for now and we will re- evaluate for possible incision and drainage The patient is feeling better today compared to yesterday's therefore we will continue the antibiotics for now Give lactulose and Colace Mirapex for the restless legs syndrome Surgical consult is on the mental health case manager closely The rest of the management will depend on the hospital course 07/01/2024: Continue IV antibiotics Rocephin and vancomycin Surgical consult is on the mental health case manager closely Add ensure 07/02/2024: Continue current management The abscess appears to be more fluctuant now and has some drainage Patient complaining of more pain and some bleeding from the abscess drainage It appears the patient might need an incision and drainage of the abscess We will discuss with surgery Plan discussed with: Patient My Orders Orders - MANNY SHAW MD Procedure Category Date Status Time Nutritional PHA 07/01/24 In Process Supplements (Ensure 12:00 Date of Service: Jul 02, 2024 Billing Provider: MANNY SHAW MD Common Visit Codes: [id number] INP/OBS CARE(HIGH) MANNY SHAW MD Jul 02, 2024 10:15
[2024-07-02] MEDS ORDERED: GELATIN 1 SPONGE SIZE 100 TOP ONE (12:25)
[2024-07-02] MEDS ORDERED: fentaNYL CITRATE 100 MCG/2 ML VL ONE (12:31)
[2024-07-02] MEDS ORDERED: PROPOFOL 10 MG/ML 20 ML IV ONE (12:31)
--- NOTE | 2024-07-02 13:18 | DVHOP2 ---
Operative Report - 2 Report Details Date: 07/02/24 Preop Diagnosis: 1. Right gluteal abscess Postop Diagnosis: 1. Same Surgeon: Jennifer James MD Machine Maintenance Mechanic: None Anesthesiologist: Dr. Odell Anesthesia: Mac, Local Consent: The surgery and its risks including but not limited to infection, bleeding, open surgical site requiring local wound care, possible future development of fistula, possible perioperative PR or stroke were explained to the patient. All questions were answered to her satisfaction. She expressed verbal understanding and wished to proceed with the surgery. Complications: None Estimated Blood Loss: 5 mL Fluids: 250 mL Name of Procedure Performed Incision and drainage of right gluteal abscess Procedure Details Procedure Details: After induction of monitored anesthesia, patient was placed in a right lateral decubitus position and her right gluteal region were prepped and draped in standard surgical fashion. Approximately 5 mL of 1% lidocaine with epinephrine was used as a local anesthesia. A small 2 cm incision was made over the fluctuance in the right medial gluteal region and incision extended into the abscess cavity. There was moderate amount of pus that was drained from the abscess cavity and this was swabbed for Gram stain and culture. The incision was then fully opened suellen the entire abscess cavity and the cavity was then well irrigated with diluted Betadine irrigation. The surgical site was then packed with half-inch packing strips. Surgical site was cleaned and dried and dressings were applied. Sponge, needle, instrument count at the end of the case were reported to be correct by the nursing staff. The patient tolerated procedure well and at the time of dictation she is being transferred back to recovery in stable condition. Specimen: Gram stain and culture Condition Stable Disposition Still a Patient JENNIFER JAMES MD Jul 02, 2024 13:18
[2024-07-02] MEDS: Lidocaine/Epinephrine 1%-1:100,000 30ML VL ONE (13:44)
[2024-07-02] MEDS ORDERED: HYDROmorphone HCL 2 MG/ML VL/or syr IV PRN (13:45)
[2024-07-02] MEDS: ACETAMINOPHEN IV 1000 MG/100ML (10MG/ML) IV PRN (13:49)
[2024-07-03] VITALS (8 sets, daily range): BP systolic 113–139; BP diastolic 61–81; PULSE 71–93; RESP 16–18; TEMP 97.7–98.6; O2SAT 91–98
--- NOTE | 2024-07-03 10:28 | DVHPN2 ---
Progress Note - Dictate Date Seen: Jul 03, 2024 Medical Necessity Reason Pt with a Central, PICC or Fol: No Subjective E: no major events o/n. no complaints. vital signs Vital Sign Date Time Temp Pulse Resp B/P (MAP) Pulse Ox O2 Delivery O2 Flow Rate FiO2 07/03/24 09:53 80 119/65 07/03/24 08:40 98.3 18 96 98.3 07/02/24 20:00 Room Air* 0 21 Total Intake and Output 07/02/24 07/02/24 07/03/24 15:00 23:00 07:00 Intake Total 100 ml 300 ml 500 ml Output Total 400 ml Balance 100 ml -100 ml 500 ml medications Current Medications Medications Dose Ordered Sig/Shantel Route Start Time Stop Time Status Last Admin Dose Admin Ceftriaxone Sodium 50 ml @ 100 mls/hr DAILY@09 IV 06/30/24 09:00 07/03/24 09:47 100 MLS/HR Vancomycin HCl 0 ml @ 0 mls/hr UD IV 06/29/24 19:30 Levothyroxine Sodium 50 mcg QAM@0600 PO 06/30/24 06:00 07/03/24 05:57 50 MCG Metoprolol Succinate 25 mg DAILY PO 06/30/24 10:00 07/03/24 09:53 25 MG Pantoprazole Sodium 40 mg DAILY@0600 PO 06/30/24 06:00 07/03/24 05:57 40 MG Atorvastatin Calcium 20 mg HS PO 06/29/24 22:00 07/02/24 22:01 20 MG Acetaminophen/ Hydrocodone Bitart 1 tab Q4HP PRN PO 06/29/24 19:30 07/03/24 03:59 1 TAB Ondansetron HCl 4 mg Q4HP PRN IV 06/29/24 19:30 07/01/24 03:12 4 MG Acetaminophen 650 mg Q6HP PRN PO 06/29/24 19:30 07/02/24 20:53 650 MG Pramipexole Dihydrochloride 0.25 mg HS PO 06/30/24 22:00 07/02/24 22:01 0.25 MG Docusate Sodium 100 mg BID PO 06/30/24 22:00 07/03/24 09:53 100 MG Neomycin/ Polymyxin/ Bacitracin 1 applic BID TOP 06/30/24 22:00 07/02/24 09:38 1 APPLIC Enteral Nutritional Formula 240 ml TIDWM PO 07/01/24 12:00 07/03/24 10:06 240 ML Vancomycin HCl 100 ml @ 100 mls/hr Q18H IV 07/03/24 10:00 objective GEN: NAD RIGHT GLUTEAL: open wound with min drainage. laboratory and microbiology Laboratory Tests 07/03/24 05:52 07/01/24 05:37 06/30/24 06:54 Test 06/30/24 06:54 Range/Units Serum Glucose 92 74-106 mg/dL Assessment/Plan A: 1. s/p I+D right gluteal abscess POD #1 stable. P: 1. local wound care 2. stable from surgery POV. DC plan per hospitalist 3. f/u in 2 weeks. [id number] for appt. Dietary Evaluation Review Comments: Increase protein and energy intake: 1) offering Ensure High Protein PO 240ml BID daily, 2) accommodate her likes and dislikes for food and the flavors of high protein supplements. 3) consider Saleem BID for healing 4) Encoruage PT and increased phsyical activities for avoiding constipation. 5) Encourage high fiber foods. Expected Outcomes/Goals: gradual wt gain, gradually healed wounds. improved well-being. Plan discussed with: Patient JENNIFER HODGSON MD Jul 03, 2024 10:28
[2024-07-03] MEDS: VANCOMYCIN 750MG KIT 100 ML IV SCH (10:49)
[2024-07-03] MEDS: ONDANSETRON HCL 4 MG/2 ML VIAL IV ONE (11:46)
--- NOTE | 2024-07-03 11:48 | DVHPN2 ---
Subjective She is status post incision and drainage of the abscess yesterday She is doing well She was complaining of some dizziness today Changes from previous H/P or p: Changes Objective Vitals Vital Signs Date Time Temp Pulse Resp B/P (MAP) Pulse Ox O2 Delivery O2 Flow Rate FiO2 07/03/24 09:53 80 119/65 07/03/24 08:40 98.3 18 96 98.3 07/02/24 20:00 Room Air* 0 21 Intake/Output Intake and Output 07/03/24 07:00 Intake Total 900 ml Output Total 400 ml Balance 500 ml Intake Oral 800 ml IV Total 100 ml Output Urine Total 400 ml # Voids 2 General Appearance: Alert, Oriented X3 Lungs: Clear to auscultation, Normal air movement Cardiovascular: Regular rate, Normal S1 Abdomen: Normal bowel sounds, Soft, No tenderness Extremities: No edema Medications Current Medications Medications Dose Ordered Sig/Shantel Route Start Time Stop Time Status Last Admin Dose Admin Ceftriaxone Sodium 50 ml @ 100 mls/hr DAILY@09 IV 06/30/24 09:00 07/03/24 09:47 100 MLS/HR Vancomycin HCl 0 ml @ 0 mls/hr UD IV 06/29/24 19:30 Levothyroxine Sodium 50 mcg QAM@0600 PO 06/30/24 06:00 07/03/24 05:57 50 MCG Metoprolol Succinate 25 mg DAILY PO 06/30/24 10:00 07/03/24 09:53 25 MG Pantoprazole Sodium 40 mg DAILY@0600 PO 06/30/24 06:00 07/03/24 05:57 40 MG Atorvastatin Calcium 20 mg HS PO 06/29/24 22:00 07/02/24 22:01 20 MG Acetaminophen/ Hydrocodone Bitart 1 tab Q4HP PRN PO 06/29/24 19:30 07/03/24 03:59 1 TAB Ondansetron HCl 4 mg Q4HP PRN IV 06/29/24 19:30 07/01/24 03:12 4 MG Acetaminophen 650 mg Q6HP PRN PO 06/29/24 19:30 07/02/24 20:53 650 MG Pramipexole Dihydrochloride 0.25 mg HS PO 06/30/24 22:00 07/02/24 22:01 0.25 MG Docusate Sodium 100 mg BID PO 06/30/24 22:00 07/03/24 09:53 100 MG Neomycin/ Polymyxin/ Bacitracin 1 applic BID TOP 06/30/24 22:00 07/02/24 09:38 1 APPLIC Enteral Nutritional Formula 240 ml TIDWM PO 07/01/24 12:00 07/03/24 10:06 240 ML Vancomycin HCl 100 ml @ 100 mls/hr Q18H IV 07/03/24 10:00 07/03/24 10:49 100 MLS/HR Laboratory Results Laboratory Tests 06/30/24 06:54 07/01/24 05:37 07/03/24 05:52 Assessment/Plan Assessment/Plan Right gluteal abscess Leg cramps possible restless leg syndrome Constipation Hypertension Hypothyroidism Dyslipidemia Plan Continue IV antibiotics Surgical consult recommended to continue IV antibiotics for now and we will re- evaluate for possible incision and drainage The patient is feeling better today compared to yesterday's therefore we will continue the antibiotics for now Give lactulose and Colace Mirapex for the restless legs syndrome Surgical consult is on the assistant case manager closely The rest of the management will depend on the hospital course 07/01/2024: Continue IV antibiotics Rocephin and vancomycin Surgical consult is on the assistant case manager closely Add ensure 07/02/2024: Continue current management The abscess appears to be more fluctuant now and has some drainage Patient complaining of more pain and some bleeding from the abscess drainage It appears the patient might need an incision and drainage of the abscess We will discuss with surgery 07/03/2024: Continue the antibiotics Order physical therapy today Discharge planning for tomorrow Plan discussed with: Patient My Orders Orders - MANNY SHAW MD Procedure Category Date Status Time Wound Culture W/ Gs JULIO 07/02/24 In Process 19:49 Date of Service: Jul 03, 2024 Billing Provider: MANNY SHAW MD Common Visit Codes: [id number] INP/OBS CARE(HIGH) MANNY SHAW MD Jul 03, 2024 11:48
[2024-07-04 05:00] VITALS: BP 124/60; PULSE 91; RESP 20; TEMP 98; O2SAT 94
[2024-07-04 08:00] VITALS: O2SAT 91
[2024-07-04 09:00] VITALS: BP 142/73; PULSE 89; RESP 16; TEMP 98; O2SAT 90
--- NOTE | 2024-07-04 09:29 | DVHPN2 ---
Progress Note - Dictate Date Seen: Jul 04, 2024 Medical Necessity Reason Pt with a Central, PICC or Fol: No Subjective E: no major events o/n. no complaints. vital signs Vital Sign Date Time Temp Pulse Resp B/P (MAP) Pulse Ox O2 Delivery O2 Flow Rate FiO2 07/04/24 09:13 89 142/73 07/04/24 05:00 98.0 20 94 98.0 07/03/24 20:00 Room Air* 0 N/A Nasal Cannula* Total Intake and Output 07/03/24 07/03/24 07/04/24 15:00 23:00 07:00 Intake Total 150 ml 210 ml 250 ml Balance 150 ml 210 ml 250 ml medications Current Medications Medications Dose Ordered Sig/Shantel Route Start Time Stop Time Status Last Admin Dose Admin Ceftriaxone Sodium 50 ml @ 100 mls/hr DAILY@09 IV 06/30/24 09:00 07/04/24 09:12 100 MLS/HR Vancomycin HCl 0 ml @ 0 mls/hr UD IV 06/29/24 19:30 Levothyroxine Sodium 50 mcg QAM@0600 PO 06/30/24 06:00 07/04/24 06:00 50 MCG Metoprolol Succinate 25 mg DAILY PO 06/30/24 10:00 07/04/24 09:13 25 MG Pantoprazole Sodium 40 mg DAILY@0600 PO 06/30/24 06:00 07/04/24 06:00 40 MG Atorvastatin Calcium 20 mg HS PO 06/29/24 22:00 07/03/24 21:34 20 MG Acetaminophen/ Hydrocodone Bitart 1 tab Q4HP PRN PO 06/29/24 19:30 07/03/24 03:59 1 TAB Ondansetron HCl 4 mg Q4HP PRN IV 06/29/24 19:30 07/03/24 11:47 4 MG Acetaminophen 650 mg Q6HP PRN PO 06/29/24 19:30 07/02/24 20:53 650 MG Pramipexole Dihydrochloride 0.25 mg HS PO 06/30/24 22:00 07/03/24 21:34 0.25 MG Docusate Sodium 100 mg BID PO 06/30/24 22:00 07/04/24 09:13 100 MG Neomycin/ Polymyxin/ Bacitracin 1 applic BID TOP 06/30/24 22:00 07/04/24 09:14 1 APPLIC Enteral Nutritional Formula 240 ml TIDWM PO 07/01/24 12:00 07/04/24 08:00 240 ML Vancomycin HCl 100 ml @ 100 mls/hr Q18H IV 07/03/24 10:00 07/04/24 04:24 100 MLS/HR objective GEN: NAD RIGHT GLUTEAL: open wound healing well. laboratory and microbiology Laboratory Tests 07/04/24 05:50 07/01/24 05:37 06/30/24 06:54 Test 06/30/24 06:54 Range/Units Serum Glucose 92 74-106 mg/dL Assessment/Plan A: 1. s/p I+D right gluteal abscess POD #2 stable. P: 1. local wound care 2. stable from surgery POV. DC plan per hospitalist 3. f/u in 2 weeks. [id number] for appt. Dietary Evaluation Review Comments: Increase protein and energy intake: 1) offering Ensure High Protein PO 240ml BID daily, 2) accommodate her likes and dislikes for food and the flavors of high protein supplements. 3) consider Saleem BID for healing 4) Encoruage PT and increased phsyical activities for avoiding constipation. 5) Encourage high fiber foods. Expected Outcomes/Goals: gradual wt gain, gradually healed wounds. improved well-being. Plan discussed with: Patient JENNIFER HODGSON MD Jul 04, 2024 09:29
[2024-07-04] MEDS ORDERED: DOXY1CAP57 PO (11:24)
--- NOTE | 2024-07-04 11:24 | DVHDS2 ---
Discharge Summary Date of Admission Jun 29, 2024 at 19:24 Date of Discharge: Jul 04, 2024 Labs/Diagnostic Data: Laboratory Results Test 07/04/24 05:50 07/03/24 03:32 07/02/24 14:40 07/01/24 05:37 Creatinine 0.80 mg/dL (0.550-1.02) Glomerular Filtration Rate Calc 70 mL/min (>90) POC Glucose 114 mg/dl (70-106) Vancomycin Level Trough 6.9 ug/mL (5-10) White Blood Count 9.2 10^3/uL (4.4-10.8) Red Blood Count 4.12 10^6/uL (4.0-5.20) Hemoglobin 13.1 g/dL (12.2-16.2) Hematocrit 40.2 % (36.0-46.0) Mean Corpuscular Volume 97.7 fL (80.0-100.0) Mean Corpuscular Hemoglobin 31.9 pg (28.0-32.0) Mean Corpuscular Hemoglobin Concent 32.6 g/dL (32.0-36.0) Red Cell Distribution Width 13.8 % (11.8-14.3) Platelet Count 295 10^3/uL (140-450) Mean Platelet Volume 10.6 fL (6.9-10.8) Neutrophils (%) (Auto) 84.8 % (37.0-80.0) Lymphocytes (%) (Auto) 5.6 % (10.0-50.0) Monocytes (%) (Auto) 6.7 % (0.0-12.0) Eosinophils (%) (Auto) 2.6 % (0.0-7.0) Basophils (%) (Auto) 0.3 % (0.0-2.0) Neutrophils # (Auto) 7.8 10 ^3/uL (1.6-8.6) Lymphocytes # (Auto) 0.5 10 ^3/uL (0.4-5.4) Monocytes # (Auto) 0.6 10 ^3/uL (0-1.3) Eosinophils # (Auto) 0.2 10 ^3/uL (0-0.8) Basophils # (Auto) 0 10 ^3/uL (0-0.2) Nucleated Red Blood Cells 0.0 % Test 06/30/24 06:54 06/29/24 13:41 Sodium Level 142 mmol/L (136-145) Potassium Level 4.0 mmol/L (3.5-5.1) Chloride Level 105 mmol/L (98-107) Carbon Dioxide Level 29 mmol/L (20-31) Anion Gap 8 (5-15) Blood Urea Nitrogen 21 mg/dL (9-23) BUN/Creatinine Ratio 23.9 (10.0-20.0) Serum Glucose 92 mg/dL (74-106) Calcium Level 9.1 mg/dL (8.7-10.4) Lactic Acid Level 0.7 mmol/L (0.4-2.0) Other Laboratory Tests 07/04/24 05:50 07/01/24 05:37 06/30/24 06:54 Brief Hx & Hospital Course: Final Diagnoses: Right gluteal abscess status post incision and drainage Leg cramps possible restless leg syndrome Constipation Hypertension Hypothyroidism Dyslipidemia 89-year-old female who was admitted for swelling and pain in the gluteal area on the right side from an abscess It was treated with IV antibiotics but it did not get better and therefore needed surgical intervention Surgery did I and D successfully with no complications She is doing better now and she is ambulating independently The patient is stable for discharge She will be given oral antibiotics to finish at home Follow up with primary care physician as soon as possible She will be given doxycycline for 7 days Condition at Discharge: Stable Final Diagnosis/Problems List Right gluteal abscess status post I and D Leg cramps possible restless leg syndrome Constipation Hypertension Hypothyroidism Dyslipidemia Discharge Disposition: Home SNF Discharge Will this Physician continue t: No Discharge Statement: "Patient was advised to return to the ER or call 911 if any headaches, dizziness, shortness of breath, chest pain, abdominal pain, bleeding, fevers, or worsening of medical condition. Patient was counseled about treatment plan, medications, possible side effects, patientverbalized understanding. All questions were answered to the best of my ability. This discharge took greater then 30 minutes in planning, reviewing documentation, counseling the patient, and discussing with other team members." ASSESSMENT ASSESSMENT Assessment 1. Same Date of Service: Jul 04, 2024 Billing Provider: MANNY SHAW MD Common Visit Codes: [id number]/[id number] DISCH DAY >30min MANNY SHAW MD Jul 04, 2024 11:24
[2024-07-04 12:53] VITALS: BP 138/67; PULSE 72; RESP 16; TEMP 97.8; O2SAT 92
[2024-07-04 13:00] VITALS: BP 138/67; PULSE 72; RESP 16; TEMP 97.8; O2SAT 92
== END 2024-07-04 16:10 | disposition home or self-care (01) | DRG 603 ==
LOC: ER 10:42 → OVERFLOW 19:24 → EAST 21:45
PROVIDERS: ADMIT Internal Medicine Geriatric Medicine; ATTEND Internal Medicine Geriatric Medicine
PROC: 0Y900ZZ Drainage of Right Buttock, Open Approach (ICD-10-PCS; principal; 2024-07-02 12:55)
DX: L02.31 Cutaneous abscess of buttock (principal); R64 Cachexia; Z68.1 Body mass index [BMI] 19.9 or less, adult; L03.317 Cellulitis of buttock; E03.9 Hypothyroidism, unspecified; E78.5 Hyperlipidemia, unspecified; K59.00 Constipation, unspecified; I10 Essential (primary) hypertension; F41.9 Anxiety disorder, unspecified; Z79.01 Long term (current) use of anticoagulants; Z79.51 Long term (current) use of inhaled steroids; Z88.0 Allergy status to penicillin; Z88.1 Allergy status to other antibiotic agents; Z90.710 Acquired absence of both cervix and uterus; Z82.5 Family history of asthma and other chronic lower respiratory diseases; Z82.0 Family history of epilepsy and other diseases of the nervous system; Z79.899 Other long term (current) drug therapy
CPT/HCPCS: 36415; 74177; 80048; 80202; 82565; 82962; 83605; 85025; 87077; 87186; 87205; 97163; A4565; G0378; J0131; J2405; J2704

== ENCOUNTER 2024-12-15 11:01 | Emergency (ER) | payer MEDICARE, OTHER ==
[~2024-12-15] VITALS: Ht 162.6 cm; Wt 40.0 kg
[~2024-12-15 11:01] MED LIST changes: -CEPH-510 PO; -CEPH500C PO; -CLIN1CAP70 PO; +DOXY1CAP57 PO; +ESCI1TAB36 PO
--- NOTE | 2024-12-15 11:31 | ED.PDOC ---
GI ASSESSMENT HPI Comments 89 y/o F, with PMHx of anxiety, HLD, HTN, and thyroid disease presents to the ED for CC of diarrhea. Patient states, she has been experiencing symptoms of diarrhea following, taking Losartan yesterday (12/15/24). Patient relays additional symptoms of abdominal discomfort as a result. Patient comments, on increased sudden weight loss in the past [id number]. Patient denies nausea, vomiting, melena, chills, weakness, or increased thirst. No other symptoms or modifying factors present at this time. Chief Complaint: Diarrhea Time Seen by MD: 11:30 Primary Care Provider: FLAQUITO Reviewed Notes: Nurses Notes, Medications, Allergies Allergies: Coded Allergies: Amoxicillin (Verified Allergy, Severe, 01/18/17) Azithromycin (Verified Allergy, Unknown, 01/18/17) Home Meds Active Scripts Doxycycline Monohydrate (Doxycycline Monohydrate) 100 Mg Cap, 1 CAP PO BID, #14 CAP Prov:MANNY SHAW MD 07/04/24 Benzonatate (Benzonatate) 200 Mg Cap, 1 CAP PO TID, #30 CAP Prov:SHYAM BONDS 03/07/24 Levofloxacin Hemihydrate (LEVAQUIN 500 MG) 500 Mg Tab, 1 TAB PO DAILY, #10 TAB Prov:SHYAM BONDS 03/07/24 Doxycycline Hyclate (DOXYCYCLINE HYCLATE) 100 Mg Tab, 1 TAB PO BID for 7 Days, #14 TAB 0 Refills Prov:ANURADHA LOPEZ NP 02/17/24 Acetaminophen (Tylenol 8 Hour Arthritis) 650 Mg Tab, 650 MG PO TID, #30 TAB Prov:SHYAM BONDS 12/07/23 Reported Medications Escitalopram Oxalate (ESCITALOPRAM OXALATE) 10 Mg Tab, 5 MG PO, TAB 06/30/24 Probiotic Product (Acidophilus) 1 Chw Chw, 1 CHW PO DAILY, TAB.CHEW 01/28/20 Cholecalciferol (D3-1000) 1,000 Unit Tab, 1000 UNIT PO DAILY, TAB 01/28/20 Multiple Vitamins W/ Minerals (Multivitamin) 1 Tab Tab, 1 TAB PO DAILY, TAB 01/28/20 Apixaban Base (ELIQUIS) 2.5 Mg Tab, 2.5 MG PO BID, TAB 01/28/20 Latanoprost (Xalatan) 0.005 % Yadira, 1 DROP EACHEYE QPM, #2.5 ML 6 Refills 01/28/20 Metoprolol Tartrate (Metoprolol Tartrate) 25 Mg Tab, 25 MG PO BID for 30 Days, MG 01/28/20 Simvastatin (Simvastatin) 20 Mg Tab, 20 MG PO HS for 30 Days 01/21/20 Fluticasone Propionate (Flovent Hfa) 220 Mcg Aer, 2 PUFF INH Q12HR, MCG 01/21/20 Levothyroxine Sodium (Levothyroxine Sodium) 50 Mcg Tab, 50 MCG PO QAM for 30 Days, MCG 01/21/20 Pantoprazole Sodium Sesquihydr (Pantoprazole Sodium) 40 Mg Tab, 40 MG PO DAILY 10/12/19 Latanoprost (LATANOPROST) 0.005 % Yadira, 1 DROP EACHEYE HS 10/12/19 Metoprolol Succinate (Metoprolol Succinate Er) 25 Mg Tab, 25 MG PO DAILY 10/12/19 Fluticasone Propionate (FLOVENT HFA 110Mcg INH) 110 Mcg Ih, 110 MCG INH Q12HR for 30 Days, MCG 01/18/17 Simvastatin (Simvastatin) 20 Mg Tab, 20 MG PO HS 12/16/11 Levothyroxine Sodium (Levothyroxine Sodium) 25 Mcg Tab, 50 MCG PO QAM 12/16/11 Information Source: Patient Mode of Arrival: Ambulatory Timing: Days Duration: Since onset Prehospital treatment: None Vomitus: None Stool: Watery Severity: Moderate Recent: None Recent Hx of: None Pain Location: Diffuse Modifying Factors: Nothing Associated sign and symptoms: Diarrhea, Abdominal Pain Past Medical History PAST MEDICAL HISTORY: Anxiety, High Lipids, HTN, Thyroid Surgical History: Hysterectomy WANIGAN CLERK History: No Pertinent WANIGAN CLERK History Family History Family History: Reviewed,noncontributory to illness Social History Smoker: Non-Smoker Alcohol: Denies ETOH Use Drugs: Denies Drug Use Lives In: Home Constitutional: denies: chills, diaphoresis, fatigue, fever, malaise, sweats, weakness, others EENTM: denies: blurred vision, double vision, ear bleeding, ear discharge, ear drainage, ear pain, ear ringing, eye pain, eye redness, hearing loss, mouth pain, mouth swelling, nasal discharge, nose bleeding, nose congestion, nose pain, photophobia, tearing, throat pain, throat swelling, voice changes, others Respiratory: denies: cough, hemoptysis, orthopnea, SOB at rest, shortness of breath, SOB with excertion, stridor, wheezing, others Cardiovascular: denies: chest pain, dizzy spells, diaphoresis, Dyspnea on exertion, edema, irregular heart beat, left arm pain, lightheadedness, pal pitations, PND, syncope, others Gastrointestinal: reports: abdominal pain, diarrhea; denies: abdomen distended, blood streaked bowels, constipated, dysphagia, difficulty swallowing, hematemesi s, melena, nausea, poor appetite, poor fluid intake, rectal bleeding, rectal pain, vomiting, others Genitourinary: denies: abnormal vagina bleeding, burning, dyspareunia, dysuria, flank pain, frequency, hematuria, incontinence, pain, , vagina discharge, urgency, others Neurological: denies: dizziness, fainting, headache, left sided numbness, left sided weakness, numbness, paresthesia, pre-existing deficit, right sided numbness, right sided weakness, seizure, speech problems, tingling, tremors, weakness, others Musculoskeletal: denies: back pain, gout, joint pain, joint swelling, muscle pain, muscle stiffness, neck pain, others Integumetry: denies: bruises, change in color, change in hair/nails, dryness, laceration, lesions, lumps, rash, wounds, others Allergic/Immunocompromised: denies: Difficulty Healing, Frequent Infections, Hives, Itching, others Hematologic/Lymphatic: denies: anemia, blood clots, easy bleeding, easy bruising, swollen glands, others Endocrine: denies: excessive hunger, excessive sweating, excessive thirst, excessive urination, flushing, intolerance to cold, intolerance to heat, une xplained weight gain, unexplained weight loss, others Psychiatric: denies: anxiety, bipolar disorder, depression, hopeless, panic disorder, schizophrenia, sleepless, suicidal, others All Other Systems: Reviewed and Negative Physical Exam General Appearance: No Apparent Distress, Normal HEENT: Normal ENT Inspection, Pharynx Normal Neck: Full Range of Motion, Non-Tender, Normal, Normal Inspection Respiratory: Chest Non-Tender, Lungs Clear, No Accessory Muscle Use, No Respiratory Distress, Normal Breath Sounds Cardiovascular: No Edema, No Murmur, No Gallop, Normal Peripheral Pulses, Regular Rate/Rhythm Breast Exam: Deferred Gastrointestinal: No Organomegaly, Non Tender, No Pulsatile Mass, Normal Bowel Sounds, Soft Genitalia: Deferred Pelvic: Deferred Rectal: Deferred Extremities: No calf tenderness, Normal capillary refill, Normal inspection, No rmal range of motion, Non-tender, No pedal edema Musculoskeletal : Apperance: Normal Neurologic: Alert, lace mender II-XII nml as Tested, No Motor Deficits, Normal Affect, Normal Mood, No Sensory Deficits Cerebellar Function: Normal Reflexes: Normal Skin: Dry, Normal Color, Warm Lymphatic: No Adenopathy Was a procedure done? Was a procedure done?: No GI differential Dx Differential Diagnosis: Gastritis/PUD, Gastroenteritis, Electrolyte Imbalance, Food Poisoning, Bacterial, Viral X-Ray, Labs, Meds, VS Vital Signs Date Time Temp Pulse Resp B/P (MAP) Pulse Ox O2 Delivery O2 Flow Rate FiO2 12/15/24 11:02 98.0 92 18 150/87 98 98.0 Lab Test 12/15/24 13:08 12/15/24 11:23 Range/Units White Blood Count 8.0 4.4-10.8 10^3/uL Red Blood Count 4.53 4.0-5.20 10^6/uL Hemoglobin 14.7 12.2-16.2 g/dL Hematocrit 43.4 36.0-46.0 % Mean Corpuscular Volume 95.8 80.0-100.0 fL Mean Corpuscular Hemoglobin 32.5 H 28.0-32.0 pg Mean Corpuscular Hemoglobin Concent 33.9 32.0-36.0 g/dL Red Cell Distribution Width 14.2 11.8-14.3 % Platelet Count 332 140-450 10^3/uL Mean Platelet Volume 10.1 6.9-10.8 fL Neutrophils (%) (Auto) 79.0 37.0-80.0 % Lymphocytes (%) (Auto) 14.4 10.0-50.0 % Monocytes (%) (Auto) 4.9 0.0-12.0 % Eosinophils (%) (Auto) 1.5 0.0-7.0 % Basophils (%) (Auto) 0.2 0.0-2.0 % Neutrophils # (Auto) 6.3 1.6-8.6 10 ^3/uL Lymphocytes # (Auto) 1.2 0.4-5.4 10 ^3/uL Monocytes # (Auto) 0.4 0-1.3 10 ^3/uL Eosinophils # (Auto) 0.1 0-0.8 10 ^3/uL Basophils # (Auto) 0 0-0.2 10 ^3/uL Nucleated Red Blood Cells 0.2 % Sodium Level 143 136-145 mmol/L Potassium Level 4.5 3.5-5.1 mmol/L Chloride Level 102 98-107 mmol/L Carbon Dioxide Level 31 20-31 mmol/L Anion Gap 10 5-15 Blood Urea Nitrogen 22 9-23 mg/dL Creatinine 0.99 0.550-1.02 mg/dL Glomerular Filtration Rate Calc 55 >90 mL/min BUN/Creatinine Ratio 22.2 H 10.0-20.0 Serum Glucose 84 74-106 mg/dL Calcium Level 9.6 8.7-10.4 mg/dL Troponin I High Sensitivity 10 </=34 ng/L Urine Color Yellow Yellow Urine Clarity Clear Clear Urine pH 6.0 5.0-9.0 Urine Specific [place] 1.015 1.001-1.035 Urine Protein Trace H Negative Urine Ketones Negative Negative Urine Blood Negative Negative /uL Urine Nitrite Negative Negative Urine Bilirubin Negative Negative Urine Urobilinogen Normal Negative mg/dL Urine Leukocyte Esterase 1+ Negative /uL Urine RBC 1 0 - 4 /hpf Urine Microscopic WBC 14 H 0-5 /HPF Urine Squamous Epithelial Cells Few <5 /hpf Urine Bacteria None seen None Seen /hpf Urine Hyaline Casts Few 0 - 2 /lpf Urine Mucus Few None Seen Urine Glucose Normal Normal mg/dL Time of 1ST Reevaluation: 12:00 Reevaluation 1ST: Unchanged Patient Education/Counseling: Diagnosis, Treatment Family Education/Counseling: No Family Present SEPSIS Sepsis Screen Date sepsis recognized/suspect: Dec 15, 2024 Time Sepsis recognized/suspect: 1102 Recent Procedure: No On Antibiotic Therapy: No Respiratory Rate >20: No Heart Rate >90: No Temp<36 C (96.8 F) or >38.3 C: No SBP <90 or MAP <65 mmHG: No New Acute Mental Status Change: No Is the patient on CPAP, BIPAP,: No Physician Orders Troponin-I Hs (12/15/24 12:23) Troponin-I Hs (12/15/24 14:23) Acetaminophen Tablet (Tylenol Tablet) (12/15/24 14:45) Cephalexin Capsule (Keflex Capsule) (12/15/24 14:45) Vital Signs Date Time Temp Pulse Resp B/P (MAP) Pulse Ox O2 Delivery O2 Flow Rate FiO2 12/15/24 11:02 98.0 92 18 150/87 98 98.0 Laboratory Tests Test 12/15/24 13:08 White Blood Count 8.0 10^3/uL (4.4-10.8) Departure 1 Departure Time of Disposition: 14:44 (Patient has a urinary tract infection. We will discharge patient home with outpatient follow up) Impression: Primary Impression: Acute cystitis Qualified Codes: N30.01 - Acute cystitis with hematuria Disposition: HOME / SELF CARE / HOMELESS Condition: Stable Additional Instructions: You have a urinary tract infection. You were prescribed antibiotics. Please take as directed. You can take Tylenol Motrin as needed for pain. It is important that he follow up with the regular doctor within 1 week to ensure you are doing better. If your symptoms worsen or you have any other concerns then please return to the emergency room. e-Prescriptions Cefdinir (Cefdinir) 300 Mg Cap 1 CAP PO BID for 5 Days, #14 CAP Prov: LIZETH SALAS MD 12/15/24 Discharged With: Legal Guardian Critical Care Note Critical Care Time?: No Stability Stability form required: No Heart Score Heart Score: Heart Score Response (Comments) Value History N/A 0 EKG N/A 0 Age N/A 0 Risk Factors N/A 0 Troponin N/A 0 Total 0 I personally scribed for LIZETH SALAS MD ([email or web address]) on 12/15/24 at 11:31. Electronically submitted by Mamie Ca ([email or web address]). I personally scribed for LIZETH SALAS MD ([email or web address]) on 12/15/24 at 11:40. Electronically submitted by Mamie Ca ([email or web address]). LIZETH SALAS MD Dec 15, 2024 11:31
[2024-12-15 12:51] LABS: Urine Protein, UAD TRACE (Negative)
[2024-12-15 13:40] LABS: Hematocrit 43.4 % (36.0-46.0); Hemoglobin 14.7 g/dL (12.2-16.2); Mean Corpuscular Hemoglobin 32.5 pg (28.0-32.0); Mean Corpuscular Volume 95.8 fL (80.0-100.0); Nucleated Red Blood Cells % 0.2 %
[2024-12-15 13:48] LABS: Chloride 102 mmol/L (98-107); Potassium 4.5 mmol/L (3.5-5.1); Sodium 143 mmol/L (136-145)
[2024-12-15 13:49] LABS: Anion Gap 10 (5-15); Calcium 9.6 mg/dL (8.7-10.4)
[2024-12-15 13:53] LABS: Carbon Dioxide 31 mmol/L (20-31)
[2024-12-15 13:54] LABS: BUN/Creatinine Ratio 22.2 (10.0-20.0); Blood Urea Nitrogen 22 mg/dL (9-23); Glucose 84 mg/dL (74-106)
[2024-12-15] MEDS ORDERED: CEPHALEXIN 250 MG CAP PO ONE (14:45)
[2024-12-15] MEDS ORDERED: CEFD300C2 PO (14:45)
[2024-12-15] MEDS: ACETAMINOPHEN 325 MG TAB PO ONE (19:26)
[2024-12-15] MEDS: CEFPODOXIME PROXETIL 200 MG TAB PO ONE (19:28)
[2024-12-15 19:33] VITALS: BP 156/93; PULSE 87; RESP 19; TEMP 97.6; O2SAT 92
== END 2024-12-15 19:36 | disposition home or self-care (01) ==
LOC: ER 11:01
DX: N30.00 Acute cystitis without hematuria (principal); F41.9 Anxiety disorder, unspecified; I10 Essential (primary) hypertension; E78.5 Hyperlipidemia, unspecified; Z88.0 Allergy status to penicillin; Z79.899 Other long term (current) drug therapy; Z88.1 Allergy status to other antibiotic agents
CPT/HCPCS: 36415; 80048; 81001; 84484; 85025

== ENCOUNTER 2024-12-25 12:33 | Outpatient (CLI) | payer OTHER ==
[~2024-12-25 12:33] MED LIST changes: +CEFD300C2 PO
[2024-12-25 13:08] LABS: Hematocrit 41.2 % (36.0-46.0); Hemoglobin 13.8 g/dL (12.2-16.2); Mean Corpuscular Hemoglobin 32.1 pg (28.0-32.0); Mean Corpuscular Volume 95.6 fL (80.0-100.0); Nucleated Red Blood Cells % 0.1 %
[2024-12-25 13:24] LABS: Alanine Aminotransferase 18 U/L (7-40); Albumin 4.4 g/dL (3.2-4.8); Alkaline Phosphatase 59 U/L (46-116); Anion Gap 9 (5-15); BUN/Creatinine Ratio 20.4 (10.0-20.0); Blood Urea Nitrogen 19 mg/dL (9-23); Calcium 9.3 mg/dL (8.7-10.4); Carbon Dioxide 30 mmol/L (20-31); Chloride 103 mmol/L (98-107); Glucose 92 mg/dL (74-106); Potassium 4.3 mmol/L (3.5-5.1); Sodium 142 mmol/L (136-145); Total Protein 6.7 g/dL (5.7-8.2); Triglycerides 68 mg/dL (< 150)
[2024-12-25 13:25] LABS: Bilirubin, Total 0.6 mg/dL (0.2-1.0); Cholesterol 133 mg/dL (< 200); HDL Cholesterol 59 mg/dL (40-59)
[2024-12-25 13:42] LABS: Free T4 (Free Thyroxine) 1.27 ng/dL (0.89-1.76)
[2024-12-26 13:21] LABS: Urine Protein, UAD Negative (Negative)
== END 2024-12-25 17:00 | disposition home or self-care (01) ==
LOC: LAB 12:33
PROVIDERS: ATTEND Internal Medicine
DX: I10 Essential (primary) hypertension (principal); E11.9 Type 2 diabetes mellitus without complications
CPT/HCPCS: 36415; 80053; 80061; 81001; 82607; 84439; 84443; 85025; 85652